=== PATIENT | male | born 1965 | race Caucasian/White ===

== ENCOUNTER → 2016-11-27 | Outpatient (CLI) | payer BC | END | disposition home or self-care (01) | LOC: LABWHC1 11:27 | PROVIDERS: ATTEND Urology | DX: R97.20 Elevated prostate specific antigen [PSA] (principal) | CPT/HCPCS: 36415; 84153 ==

== ENCOUNTER → 2016-12-20 | Outpatient (CLI) | payer BC ==
[2016-12-20 08:42] LABS: Basophils # (A) 0.1 k/uL (0-0.2); Basophils % (A) 1 %; CH 26.8; CHCM 32.5; Eosinophils # (A) 0.3 k/uL (0-0.7); Eosinophils % (A) 5 %; HCT 41.9 % (39.0-53.0); HDW 3.53; HGB 13.7 gm/dL (13.0-17.5); Hypochromasia Slight; Luc # (Auto) 0.25; Luc % (Auto) 4; Lymphocytes # (A) 1.7 k/uL (1.0-4.8); Lymphocytes % (A) 24 %; MCH 27.1 pg (25.0-35.0); MCHC 32.8 g/dL (31.0-37.0); MCV 82.5 fL (80.0-100.0); Mean Platelet Volume 7.6; Monocytes # (A) 0.6 k/uL (0-1.0); Monocytes % (A) 8 %; Neutrophils # (A) 4.1 k/uL (1.3-7.7); Neutrophils % (A) 59 %; Poikilocytosis Slight; RBC 5.07 m/uL (4.30-5.90); RDW 15.3 % (11.5-15.5); WBC (Perox) 6.86
[2016-12-20 09:06] LABS: ALT 35 U/L (21-72); AST 29 U/L (17-59); Alkaline Phosphatase 58 U/L (38-126); Anion Gap 11 mmol/L; Blood Urea Nitrogen 19 mg/dL (9-20); Calcium 9.6 mg/dL (8.4-10.2); Carbon Dioxide 30 mmol/L (22-30); Chloride 106 mmol/L (98-107); Cholesterol 168 mg/dL (<200); Glucose 122 mg/dL (74-99); HDL Cholesterol 34 mg/dL (40-60); Non-African American GFR(MDRD) >60 (>60 ml/min/1.73 sqM); Potassium 4.2 mmol/L (3.5-5.1); Sodium 147 mmol/L (137-145); Total Bilirubin 0.9 mg/dL (0.2-1.3); Total Protein 7.9 g/dL (6.3-8.2); Triglycerides 140 mg/dL (<150)
[2016-12-20 09:52] LABS: Hepatitis C Virus IgG Index 0.04
[2016-12-20 10:03] LABS: Hepatitis C Virus IgG Ab Negative (Negative)
== END | disposition home or self-care (01) ==
LOC: LABWHC1 07:29
PROVIDERS: ATTEND Family Medicine
DX: E78.5 Hyperlipidemia, unspecified (principal); E03.9 Hypothyroidism, unspecified; Z20.9 Contact with and (suspected) exposure to unspecified communicable disease
CPT/HCPCS: 36415; 80053; 80061; 84439; 84443; 84481; 85025; 86803

== ENCOUNTER → 2017-02-14 | Outpatient (CLI) | payer BC ==
[~2017-02-14] MED LIST: REGADENOSON 0.4 MG/5 ML SYRINGE IV ONE
--- NOTE | 2017-02-14 11:35 | ECHOF ---
Referral Reason:I10 htn R94.31 abn ekg MEASUREMENTS -------- HEIGHT: 182.9 cm WEIGHT: 156.5 kg BP: 130/85 RVIDd: 3.5 cm (< 3.3) IVSd: 1.5 cm (0.6 - 1.1) LVIDd: 5.5 cm (3.9 - 5.3) LVPWd: 1.5 cm (0.6 - 1.1) IVSs: 2.0 cm LVIDs: 3.6 cm LVPWs: 1.6 cm LA Diam: 5.0 cm (2.7 - 3.8) LAESV Index (A-L): 29.07 ml/m Ao Diam: 3.7 cm (2.0 - 3.7) AV Cusp: 2.1 cm (1.5 - 2.6) LA Diam: 5.1 cm (2.7 - 3.8) MV EXCURSION: 22.668 mm (> 18.000) MV EF SLOPE: 98 mm/s (70 - 150) EPSS: 0.5 cm MV E Ali: 0.57 m/s MV DecT: 264 ms MV A Lai: 0.66 m/s MV E/A Ratio: 0.87 RAP: 5.00 mmHg RVSP: 11.86 mmHg FINDINGS -------- Sinus rhythm. Morbid Obesity There is moderate concentric left ventricular hypertrophy. Overall left ventricular systolic function is low-normal with, an EF between 50 - 55 %. The right ventricle is normal in size. LA is midly dilated 29-33ml/m2. The right atrial size is normal. 1.5MG OF DEFINITY UTLIZED: 2 OR MORE WALL SEGMENTS NOT VISUALIZED. There is mild aortic valve sclerosis. There is no evidence of aortic regurgitation. Mild mitral annular calcification present. Mild mitral regurgitation is present. Mild tricuspid regurgitation present. There is no evidence of pulmonary hypertension. The right ventricular systolic pressure, as measured by Doppler, is 11.86mmHg. There is no pulmonic regurgitation present. The aortic root size is normal. There is no pericardial effusion. CONCLUSIONS -------- 1. There is moderate concentric left ventricular hypertrophy. 2. The right ventricular systolic pressure, as measured by Doppler, is 11.86mmHg. 3. There is no pulmonic regurgitation present. 4. There is no pericardial effusion. 5. Overall left ventricular systolic function is low-normal with, an EF between 50 - 55 %. 6. LA is midly dilated 29-33ml/m2. 7. 1.5MG OF DEFINITY UTLIZED: 2 OR MORE WALL SEGMENTS NOT VISUALIZED. 8. There is mild aortic valve sclerosis. 9. Mild mitral annular calcification present. 10. Mild mitral regurgitation is present. 11. Mild tricuspid regurgitation present. 12. There is no evidence of pulmonary hypertension. PULP MAKING PLANT OPERATOR: Nat Abrams RDCS
--- NOTE | 2017-02-14 14:26 | EST ---
DATE OF SERVICE: 02/14/2017 AGE: 51Y SEX: M HT: 6'2" WT: 345 lbs. Lexiscan Cardiolite Stress Test *Heart Rate Blood Pressure *Rest: 58 Rest: 143/82 * *Max. Achieved: 95 Maximum BP: 143/82 85% PMHR: 143 100% PMHR: 168 *METS: - INDICATIONS: Hypertension, abnormal EKG. MEDICATIONS: Lisinopril, Synthroid, prednisone, daily vitamin, Zyrtec, methotrexate. STRESS DATA: Pretesting physical examination showed heart rate of 58, pressure is 143/82 mmHg. Baseline EKG showed sinus rhythm. The patient was given 0.4 mg of Lexiscan over 15 seconds per protocol. Max heart was 95 beats per minute and maximum pressure was 143/82 mmHg. Clinically, the patient did not have any symptoms of chest pain or discomfort and the EKG did not show any significant ST or T-wave abnormalities consistent with ischemia. CONCLUSION: 1. Nondiagnostic electrocardiogram stress testing in response to Lexiscan. 2. Please follow up on the Cardiolite portion on a separate report from the Radiology Department.
--- NOTE | 2017-02-14 14:28 | NM ---
EXAMINATION TYPE: NM stress lexiscan cardiolite DATE OF EXAM: 02/14/2017 COMPARISON: NONE HISTORY: Hypertension, abnormal EKG, R 94.31, I10 TECHNIQUE: After the intravenous administration of 10.72 mCi Tc 99m Sestamibi - Cardiolite resting S PECT images acquired 45 minutes post injection. The patient received 0.4mg Lexiscan, 26.4 mCi Tc 99m Sestamibi - Stress images obtained [address] injection FINDINGS: Review of stress and rest SPECT images demonstrates decreased perfusion along the anterior wall of th e left ventricle on stress and rest images towards the base of the heart. Suggestion of some decrease d uptake along the anteroseptal left ventricular myocardium on stress as compared to rest images only on the vertical long axis and not confirmed on the additional imaging, this may be artifactual. Gat ed analysis shows normal wall motion with an estimated left ventricular ejection fraction of 59 %. IMPRESSION: Suspect artifact as described, findings equivocal. There may have been previous infarct along the ant erior wall of the left ventricle.
== END | disposition home or self-care (01) ==
LOC: RADNMMAIN 09:01
PROVIDERS: ATTEND Family Medicine
DX: R94.31 Abnormal electrocardiogram [ECG] [EKG] (principal); I10 Essential (primary) hypertension
CPT/HCPCS: 93017; 93306; 78452; A9500; Q9957; J2785

== ENCOUNTER 2017-03-27 06:34 | Day surgery (SDC) | payer BC ==
[2017-03-21 08:58] VITALS: BMI 43.0
[~2017-03-27 06:34] MED LIST changes: +ALPRAZolam 0.25 MG TAB PO PRN; +ALPRAZolam 0.5 MG TAB PO PRN; +ASPIRIN 325 MG TAB PO STA; +ATORVASTATIN 80 MG TAB PO STA; +NITROGLYCERIN SL TABS 0.4 MG TAB SUBLINGUAL PRN; -REGADENOSON 0.4 MG/5 ML SYRINGE IV ONE; +SODIUM CHLORIDE 0.9% 1,000 ML in EMPTY BAG 1 BAG IV ONE
[2017-03-27] MEDS ORDERED: HEPARIN SODIUM 1,000 UN/ML (10ML VL) ONE (07:06)
[2017-03-27] MEDS ORDERED: LIDOCAINE 2% INJ 20 MG/ML (20 ML MDV) ONE (07:07)
[2017-03-27] MEDS ORDERED: VERAPAMIL 2.5 MG/ML 2 ML AMP ONE (07:07)
[2017-03-27] MEDS ORDERED: SODIUM CHLORIDE 0.9% 1,000 ML IV ONE (07:09)
[2017-03-27 07:11] LABS: Glucose,Whole Blood 200 mg/dL (75-99)
[2017-03-27 07:12] VITALS: RESP 16
[2017-03-27] MEDS ORDERED: diphenhydrAMINE 50 MG/ML 1 ML VIAL ONE (07:25)
[2017-03-27] MEDS ORDERED: fentaNYL (PF) 50 MCG/ML 2 ML AMP ONE (07:25)
[2017-03-27] MEDS ORDERED: fentaNYL (PF) 50 MCG/ML 2 ML AMP IV ONE (07:41)
[2017-03-27] MEDS ORDERED: diphenhydrAMINE 50 MG/ML 1 ML VIAL IVP ONE (07:41)
[2017-03-27] MEDS ORDERED: LIDOCAINE 2% INJ 20 MG/ML SQ ONE (07:46)
[2017-03-27] MEDS ORDERED: VERAPAMIL SYRINGE (5 MG/10 ML) INTRAARTER ONE (07:49)
[2017-03-27] MEDS ORDERED: IOHEXOL 350 MG/ML 125ML BOTTLE INJ ONE (08:00)
[2017-03-27] MEDS ORDERED: RX INFO: IV CONTRAST WAS GIVEN 1 EACH MISC MISCELLANE PRN (08:13)
[2017-03-27] MEDS ORDERED: IBUPROFEN 800 MG TAB PO PRN (08:14)
[2017-03-27] MEDS ORDERED: SODIUM CHLORIDE 0.9% 1,000 ML IV SCH (08:15)
[2017-03-27] MEDS ORDERED: NON-FORMULARY DRUG (Cetirizine Hcl [Zyrtec] 10 MG) PO SCH (08:15)
[2017-03-27 08:29] LABS: Glucose,Whole Blood 179 mg/dL (75-99)
[2017-03-27 08:33] VITALS: TEMP 97.8
[2017-03-27] MEDS ORDERED: LEVOTHYROXINE 100 MCG TAB PO SCH (09:00)
[2017-03-27] MEDS ORDERED: LISINOPRIL-HCTZ 20-12.5 MG 1 EACH TAB PO SCH (09:00)
[2017-03-27] MEDS ORDERED: ERGOCALCIFEROL 50,000 UNIT CAP PO SCH (09:00)
[2017-03-27] MEDS ORDERED: NON-FORMULARY DRUG (Aspirin [Adult Low Dose Aspirin Ec] 81 MG) PO SCH (09:00)
[2017-03-27] MEDS ORDERED: FOLIC ACID 1 MG TAB PO SCH (09:00)
[2017-03-27] MEDS ORDERED: GLIMEPIRIDE 1 MG TAB PO SCH (09:00)
[2017-03-27 13:17] VITALS: BP 135/69; PULSE 69
--- NOTE | 2017-03-27 16:24 | CC ---
DATE OF PROCEDURE: 03/27/2017 Mr. Dumas is a 51-year-old male with a known history of hypertension, history of diabetes mellitus, who underwent knee surgery ( ) underwent myocardial perfusion imaging that revealed evidence of anterior wall defect. In view of that, recommendation was made regarding cardiac catheterization. The procedure, its risks, benefits and complications were discussed with the patient, who was in full understanding and agreement. PROCEDURE: The patient was brought to the cardiac catheterization technologist in a fasting, semi-sedated state after receiving fentanyl and Benadryl and achieving moderated conscious sedated state. Using Xylocaine anesthesia and surgical technique, a 6 Uzbek sheath was introduced into the right radial artery. Selective right and left coronary angiography was performed using 5 Uzbek, 3.5 [place], right and left [place] catheters. Multiple views were taken of the arteries, including hemiaxial views. Following that, a 5 Uzbek tight pigtail catheter was introduced into the left ventricle and a 30-degree GUO view of the left ventricle was obtained. Following that, catheter and sheath were removed. Hemostasis was obtained with deployment of a TR band. There were no immediate complications. The patient was returned to his room in stable condition. Of note , patient received 5000 units of intravenous heparin as well as intrarterial Verapamil. FINDINGS: LEFT MAIN: This is a short-sized vessel bifurcating into left circumflex, left anterior descending coronary artery. Left main coronary artery is without any obstructive coronary artery disease. LEFT ANTERIOR DESCENDING ARTERY: This is a large-sized vessel reaching toward the apex. It tapers down in the distal third, giving rise to a large diagonal branch proximally. The left anterior descending artery as well as its branches have no evidence of obstructive coronary artery disease. LEFT CIRCUMFLEX: This is a non-dominant vessel giving rise to 2 obtuse marginal branches. The left circumflex as well as its branches have no evidence of obstructive lung disease. RIGHT CORONARY ARTERY: This is a large dominant vessel bifurcating distally into PDA and PLV. The PDA reaches toward the inferoapical wall. The right coronary artery as well as its branches have no evidence of obstructive coronary artery disease. LEFT VENTRICULOGRAM: Left ventriculogram was performed in 30-degree GUO view and revealed normal left ventricular size and systolic fraction. Ejection fraction is 60%. HEMODYNAMICS: There was no gradient across the aortic valve. The left ventricular end-diastolic pressure was 12 mmHg. CONCLUSION: 1. Normal coronary arteries. 2. Normal left ventricular size and systolic function. RECOMMENDATIONS: Patient will continue therapy on the present medical regimen. Aggressive coronary risk factor modifications will be continued. Those findings and recommendations were discussed the patient and his family, who are in full understanding and agreement. The duration of the procedure was 17 minutes. MTDD
--- NOTE | 2017-03-27 16:29 | MISC ---
LETTER March 27, 2017 Re: Shon Dumas (63) Dear Dr. Fernandez, I had the pleasure of performing cardiac catheterization on Mr. Dumas at [facility] on March 27, and a full copy of the procedure note will be forwarded to you. In brief, he was found to have no evidence of significant or obstructive coronary artery disease, with a preserved systolic function. Based on those findings, I have recommended continued medical therapy with the aggressive coronary risk factor modifications you have initiated. Thank you again for allowing me to participate in this patient's care. Please feel free to call with any questions. Sincerely, Yariel Henriquez M.D. TESHA
[2017-03-29] MEDS ORDERED: METHOTREXATE SODIUM 2.5 MG TAB PO SCH (12:00)
== END 2017-03-27 13:20 | disposition home or self-care (01) ==
LOC: CATHCVL 06:34
PROVIDERS: ATTEND Internal Medicine Interventional Cardiology
DX: R94.39 Abnormal result of other cardiovascular function study (principal); I10 Essential (primary) hypertension; Z79.84 Long term (current) use of oral hypoglycemic drugs; E11.9 Type 2 diabetes mellitus without complications; Z79.899 Other long term (current) drug therapy; Z79.82 Long term (current) use of aspirin
CPT/HCPCS: 93458; 99152; 99153; C1894; C1769; J2001; J1200; J3010; J1644; Q9967

== ENCOUNTER → 2017-04-01 | Outpatient (CLI) | payer BC | END | disposition home or self-care (01) | LOC: LABWHC1 12:02 | PROVIDERS: ATTEND Urology | DX: R97.20 Elevated prostate specific antigen [PSA] (principal) | CPT/HCPCS: 36415; 84153 ==

== ENCOUNTER → 2017-06-05 | Outpatient (CLI) | payer BC | END | disposition home or self-care (01) | LOC: LABWHC1 07:10 | PROVIDERS: ATTEND Family Medicine | DX: E11.9 Type 2 diabetes mellitus without complications (principal) | CPT/HCPCS: 36415; 83036 ==

== ENCOUNTER → 2017-10-07 | Outpatient (CLI) | payer BC ==
[2017-10-07 10:33] LABS: ALT 60 U/L (21-72); AST 41 U/L (17-59); Albumin 4.2 g/dL (3.5-5.0); Alkaline Phosphatase 47 U/L (38-126); Anion Gap 10 mmol/L; Blood Urea Nitrogen 19 mg/dL (9-20); Calcium 9.6 mg/dL (8.4-10.2); Carbon Dioxide 30 mmol/L (22-30); Chloride 104 mmol/L (98-107); Cholesterol 160 mg/dL (<200); Glucose 110 mg/dL (74-99); HDL Cholesterol 36 mg/dL (40-60); LDL Cholesterol,Calculated 100 mg/dL (0-99); Potassium 4.3 mmol/L (3.5-5.1); Sodium 144 mmol/L (137-145); Total Bilirubin 0.8 mg/dL (0.2-1.3); Total Protein 7.2 g/dL (6.3-8.2); Triglycerides 119 mg/dL (<150)
[2017-10-07 11:12] LABS: Prostate Specific Antigen <0.10 ng/mL (0.00-4.00)
== END | disposition home or self-care (01) ==
LOC: LABWHC1 07:11
PROVIDERS: ATTEND Urology
DX: C61 Malignant neoplasm of prostate (principal); E11.9 Type 2 diabetes mellitus without complications
CPT/HCPCS: 36415; 80053; 80061; 84153

== ENCOUNTER → 2018-06-01 | Outpatient (CLI) | payer BC | END | disposition home or self-care (01) | LOC: LABWHC1 08:11 | PROVIDERS: ATTEND Urology | DX: R97.20 Elevated prostate specific antigen [PSA] (principal) | CPT/HCPCS: 36415; 84153 ==

== ENCOUNTER → 2019-01-28 | Outpatient (CLI) | payer BC | LOC: LABWHC1 14:25 | PROVIDERS: ATTEND Urology | DX: C61 Malignant neoplasm of prostate (principal) | CPT/HCPCS: 36415; 84153 ==

== ENCOUNTER → 2019-02-18 | Outpatient (CLI) | payer BC ==
--- NOTE | 2019-02-18 17:57 | PN ---
PROGRESS NOTE DATE OF SERVICE: 02/18/2019 This patient is a 53-year-old gentleman who has been followed in [facility] for treatment of obstructive sleep apnea-hypopnea syndrome. Patient successfully continues to use his BiPAP equipment every night for the whole night without any significant problems. No snoring with the machine. [place] Sleepiness Scale today is 6, which is within normal range. I checked patient's BiPAP unit. BiPAP pressure is 15/11 cm of water. The patient is using it every night for the whole night, 30/30 nights for more than 4 hours. Average usage is 7.9 hours. The machine does not have information about apnea-hypopnea index. The machine is more than 6 years old and sometimes noisy. MEDICATIONS: 1. Synthroid. 2. Hydrochlorothiazide. 3. Lisinopril. 4. Ibuprofen. PHYSICAL EXAMINATION: GENERAL: A pleasant patient in no distress. VITAL SIGNS: BP on the right arm 190/93, on the left, 184/88, HR 66. Height 6 feet 0 inches. Weight 376. Body mass index 50.9, temperature 98.0, oxygen saturation at room air 97%. HEENT: PERRLA, EOMI. Evaluation of oropharynx showed tongue protrudes midline. Low position of soft palate. Mallampati IV. NECK: Supple. No JVD. Thyroid is not palpable. LUNGS: Clear to percussion and to auscultation. Good air exchange. No wheezing or rhonchi. HEART: S1, S2 regular. No murmurs, gallops or rubs. ABDOMEN: Obese. EXTREMITIES: No clubbing or cyanosis. WALLPAPER SCRAPER: Awake, alert, and oriented X3. Cranial nerves 2 to 7 intact. There is no fasciculation or atrophy. noted. No focal deficits observed. IMPRESSION: 1. Severe obstructive sleep apnea-hypopnea syndrome with extremely high apnea-hypopnea index of 106. Patient demonstrated 100% compliance with treatment, benefitting from treatment. 2. BiPAP unit is more than 6 years old. Sometimes it is noisy. It does not have information about apnea-hypopnea index. 3. Hypertension. 4. History of prostate carcinoma, status post prostatectomy. 5. Status post bilateral knee replacement 2 years ago. 6. Status post tonsillectomy. 7. Status post hernia repair. PLAN: 1. Patient will continue to use BiPAP equipment every night for the whole night. 2. Prescription to replace BiPAP unit with automatic model. 3. Losing weight. 4. Sleep hygiene with regular time in bed for at least 8 hours. 5. No driving if feeling any sleepiness. 6. I will see the patient for follow-up visit to check his apnea-hypopnea index on treatment with the new BiPAP unit. Thank you very much for allowing me to participate in the management of your patient. Sincerely, Gilberto Rice MD, PhD, FAASM Diplomat of [place] [employer] [place] [employer] Special Warfare Combatant Crewman of [facility] [place] MMODL / IJN: [id number] /
== END | disposition home or self-care (01) ==
LOC: SLEEP 16:07
PROVIDERS: ATTEND Internal Medicine
DX: G47.33 Obstructive sleep apnea (adult) (pediatric) (principal); I10 Essential (primary) hypertension; Z79.1 Long term (current) use of non-steroidal anti-inflammatories (NSAID); Z99.89 Dependence on other enabling machines and devices; Z90.79 Acquired absence of other genital organ(s); Z85.46 Personal history of malignant neoplasm of prostate; Z96.653 Presence of artificial knee joint, bilateral; Z90.89 Acquired absence of other organs; Z98.890 Other specified postprocedural states; Z79.899 Other long term (current) drug therapy

== ENCOUNTER → 2019-06-09 | Outpatient (CLI) | payer BC ==
--- NOTE | 2019-06-09 20:51 | PN ---
PROGRESS NOTE DATE OF SERVICE: 06/09/2019 This patient is a 53-year-old gentleman who has been followed in [facility] for treatment of severe obstructive sleep apnea-hypopnea syndrome. Recently the patient received a new BiPAP unit. Today is his first visit after he started to use the new BiPAP machine. The patient is able to use BiPAP equipment every night for the whole night without significant problems related to mask fitting, pressure or humidification. [place] Sleepiness Scale today is 3, which is absolutely normal. I checked the patient's BiPAP unit. Range of the pressure: maximal inspiratory pressure 17, minimal expiratory pressure 8 with a pressure support of 4. Average pressure 14/10 cm of water. Usage is every night for more than 4 hours. Average usage is 7.6 hours. Leak is only 4 L/minute. Apnea-hypopnea index is 1.7, which is absolutely perfect. MEDICATIONS: 1. Lisinopril. 2. Hydrochlorothiazide. 3. Synthroid. 4. Ibuprofen. PHYSICAL EXAMINATION: GENERAL: A pleasant patient in no distress. No chest pain, no shortness of breath, no headache. VITAL SIGNS: BP 182/97, HR 65, RR 16. Weight is 374.2. Oxygen saturation at room air 96%. HEENT: PERRLA, EOMI. Evaluation of oropharynx showed tongue protrudes midline. Low position of soft palate. Mallampati IV. NECK: Supple. No JVD. Thyroid is not palpable. LUNGS: Clear to percussion and to auscultation. Good air exchange. No wheezing or rhonchi. HEART: S1, S2 regular. No murmurs, gallops or rubs. ABDOMEN: Obese. EXTREMITIES: No clubbing or cyanosis. CYBER ANALYST: Awake, alert, and oriented X3. Cranial nerves 2 to 7 intact. There is no fasciculation or atrophy. noted. No focal deficits observed. IMPRESSION: 1. Severe obstructive sleep apnea-hypopnea syndrome with apnea-hypopnea index 106. The patient demonstrated 100% compliance with treatment, benefitting from treatment; respiration fully normalized on treatment with BiPAP. 2. Hypertension. 3. History of prostate carcinoma, status post prostatectomy. 4. Status post bilateral knee replacement 2 years ago. 5. Status post tonsillectomy. 6. Status post hernia repair. PLAN: 1. Patient will continue to use BiPAP equipment every night for the whole night. 2. Losing weight. 3. Sleep hygiene with regular time in bed for 7-1/2 hours. 4. Monitoring of his blood pressure by himself and with his primary care physician his low-sodium diet. Thank you very much for allowing me to participate in the management of your patient. Sincerely, Gilberto Rice MD, PhD, FAASM Diplomat of [place] [employer] [place] [employer] Watch Hairspring Assembler of [facility] [place] MMODL / IJN: [id number] /
== END | disposition home or self-care (01) ==
LOC: SLEEP 16:31
PROVIDERS: ATTEND Internal Medicine
DX: G47.33 Obstructive sleep apnea (adult) (pediatric) (principal); I10 Essential (primary) hypertension; Z85.46 Personal history of malignant neoplasm of prostate; Z90.79 Acquired absence of other genital organ(s); Z96.653 Presence of artificial knee joint, bilateral; Z90.89 Acquired absence of other organs; Z98.890 Other specified postprocedural states; Z99.89 Dependence on other enabling machines and devices; Z79.1 Long term (current) use of non-steroidal anti-inflammatories (NSAID); Z79.899 Other long term (current) drug therapy

== ENCOUNTER → 2019-08-12 | Outpatient (CLI) | payer BC | END | disposition home or self-care (01) | LOC: LABWHC1 12:16 | PROVIDERS: ATTEND Urology | DX: C61 Malignant neoplasm of prostate (principal) | CPT/HCPCS: 36415; 84153 ==

== ENCOUNTER → 2019-10-13 | Day surgery (SDC) | payer BC ==
[2019-10-11 09:05] VITALS: BMI 44.7
[~2019-10-13] MED LIST changes: -ALPRAZolam 0.25 MG TAB PO PRN; -ALPRAZolam 0.5 MG TAB PO PRN; -ASPIRIN 325 MG TAB PO STA; -ATORVASTATIN 80 MG TAB PO STA; +LACTATED RINGERS 1,000 ML IV SCH; +LIDOCAINE 1% 20 ML VIAL (10MG/ML) FOR IV START INTRADERMA PRN; -NITROGLYCERIN SL TABS 0.4 MG TAB SUBLINGUAL PRN; +PROPOFOL 10 MG/ML 20 ML VIAL IV ONE; -SODIUM CHLORIDE 0.9% 1,000 ML in EMPTY BAG 1 BAG IV ONE
--- NOTE | 2019-10-13 08:39 | P.GSHP ---
History of Present Illness H&P Date: 10/13/19 CHIEF COMPLAINT: Colon screen HISTORY OF PRESENT ILLNESS: The patient is a 53-year-old male who presents for colon screen. Lower endoscopy was offered for further evaluation and management. PAST MEDICAL HISTORY: Please see list. PAST SURGICAL HISTORY: Please see list. MEDICATIONS: Please see list. ALLERGIES: Please see list. SOCIAL HISTORY: No illicit drug use FAMILY HISTORY: No reports of Crohn disease or ulcerative colitis. REVIEW OF ORGAN SYSTEMS: CONSTITUTIONAL: No reports of fevers or chills. PHYSICAL EXAM: VITAL SIGNS: Stable GENERAL: Well-developed pleasant in no acute distress. HEENT: No scleral icterus. Extraocular movements grossly intact. Moist buccal mucosa. NECK: Supple without lymphadenopathy. CHEST: Unlabored respirations. Equal bilateral excursions. CARDIOVASCULAR: Regular rate and rhythm. Distal 2+ pulses. ABDOMEN: Soft, nontender, nondistended. MUSCULOSKELETAL: No clubbing, cyanosis, or edema. ASSESSMENT: 1. Colon screen. PLAN: 1. Recommend proceeding with a lower endoscopy Past Medical History Past Medical History: Cancer, Diabetes Mellitus, Hypertension, Rheumatoid Arthritis (RA), Sleep Apnea/CPAP/BIPAP, Thyroid Disorder Additional Past Medical History / Comment(s): HX of Prostate CA; uses CPAP, hx of colon polyps, Lower back pain with sciatica eric. History of Any Multi-Drug Resistant Organisms: None Reported Past Surgical History: Appendectomy, Heart Catheterization, Hernia Repair, Joint Replacement Additional Past Surgical History / Comment(s): Eric. knee replacements; Eric. knee arthroscopies, Prostatectomy, Colonoscopy Past Anesthesia/Blood Transfusion Reactions: No Reported Reaction Past Psychological History: No Psychological Hx Reported Smoking Status: Never smoker Past Alcohol Use History: None Reported Past Drug Use History: None Reported - Past Family History Father Family Medical History: Cancer Additional Family Medical History / Comment(s): colon Mother Family Medical History: Cancer Additional Family Medical History / Comment(s): liver Brother(s) Family Medical History: Cancer Additional Family Medical History / Comment(s): colon Medications and Allergies Home Medications Medication Instructions Recorded Confirmed Type Levothyroxine Sodium [Levoxyl] 100 mcg PO DAILY 03/21/17 10/11/19 History Lisinopril-Hctz 20-12.5 mg 1 tab PO BID 03/21/17 10/11/19 History [Zestoretic 20-12.5] Ibuprofen 800 mg PO Q6HR PRN 03/24/17 10/11/19 History Acetaminophen [Tylenol] 325 mg PO DIRECTED PRN 10/11/19 10/11/19 History Atorvastatin [Lipitor] 20 mg PO DAILY 10/11/19 10/11/19 History Etanercept [Enbrel] 50 mg SQ WE 10/11/19 10/11/19 History Ozempic 0.5 mg INJ MO 10/11/19 History Allergies Allergy/AdvReac Type Severity Reaction Status Date / Time Penicillins Allergy Rash/Hives Verified 10/11/19 08:50 hydrocodone [From [place]] AdvReac headache;di Verified 10/11/19 08:50 zziness
[2019-10-13 09:12] VITALS: TEMP 98.9
[2019-10-13 09:16] LABS: Glucose,Whole Blood 128 mg/dL (75-99)
[2019-10-13 09:41] VITALS: RESP 16
--- NOTE | 2019-10-13 09:48 | P.PCN ---
Date of Procedure: 10/13/19 Description of Procedure: PREOPERATIVE DIAGNOSIS: Colonoscopy screening. Family history colon cancer, brother, father, grandmother Personal history of high-risk colon polyp POSTOPERATIVE DIAGNOSIS: Colonoscopy screening. Family history colon cancer, brother, father, grandmother Personal history of high-risk colon polyp OPERATION: Colonoscopy to the ascending colon SURGEON: Hyacinth Elmore MD. ANESTHESIA: MAC. INDICATIONS: The patient is a 53-year-old male who presents for colonoscopy screening. Benefits and risks were described and informed consent was obtained. DESCRIPTION OF PROCEDURE: The patient had undergone Suprep. He had been brought into the operating room and laid in the left lateral decubitus position. After adequate intravenous sedation, the rectum was examined with 2% lidocaine jelly. The prostatic fossa was unremarkable. No external hemorrhoids were encountered. The rectal tone was within normal limits. No lesions were palpated in the rectal vault. An Olympus colonoscope was advanced to the ascending colon. The sigmoid colon was highly tortuous including along the splenic flexure. The prep was excellent with clear visualization of the mucosal folds. No scattered diverticulosis was encountered. No colonic polyps were found of the transverse colon and descend ing colon. No evidence of focal colitis was found. Retroflexion of the scope demonstrated grade 1 internal hemorrhoids without active bleeding or inflammation. The colon was desufflated. The patient had tolerated the procedure well. Withdrawal time was over 6 minutes. FINDINGS: Aronchick preparation quality scale 1 (1-5) Internal hemorrhoids, grade 1 No external prolapsed hemorrhoids. No arteriovenous malformations. No adenomatous polyps. No focal colitis. No sigmoid diverticulosis Scope advanced to the ascending colon RECOMMENDATIONS: 1. Recommend completion barium enema for the cecum and ileocecal valve 2. He has high-risk history, repeat colonoscopy 3 years, 2022 Plan - Discharge Summary Discharge Rx Participant: No New Discharge Prescriptions: Continue Lisinopril-Hctz 20-12.5 mg [Zestoretic 20-12.5] 1 tab PO BID Levothyroxine Sodium [Levoxyl] 100 mcg PO DAILY Ibuprofen 800 mg PO Q6HR PRN PRN Reason: Pain Etanercept [Enbrel] 50 mg SQ WE Atorvastatin [Lipitor] 20 mg PO DAILY Acetaminophen [Tylenol] 325 mg PO DIRECTED PRN PRN Reason: Pain Ozempic 0.5 mg INJ MO metFORMIN HCL [Glucophage] 500 mg PO BID Discharge Medication List Levothyroxine Sodium [Levoxyl] 100 mcg PO DAILY 03/21/17 [History] Lisinopril-Hctz 20-12.5 mg [Zestoretic 20-12.5] 1 tab PO BID 03/21/17 [History] Ibuprofen 800 mg PO Q6HR PRN 03/24/17 [History] Acetaminophen [Tylenol] 325 mg PO DIRECTED PRN 10/11/19 [History] Atorvastatin [Lipitor] 20 mg PO DAILY 10/11/19 [History] Etanercept [Enbrel] 50 mg SQ WE 10/11/19 [History] Ozempic 0.5 mg INJ MO 10/11/19 [History] metFORMIN HCL [Glucophage] 500 mg PO BID 10/13/19 [History] Follow up Appointment(s)/Referral(s): Hyacinth Elmore MD [STAFF PHYSICIAN] - 10/19/19 Patient Instructions/Handouts: Colonoscopy (DC) Activity/Diet/Wound Care/Special Instructions: Recommend colonoscopy in 3 years, 2022 Discharge Disposition: HOME SELF-CARE
[2019-10-13 09:55] VITALS: BP 133/93; PULSE 64
--- NOTE | 2019-10-13 14:43 | XR ---
KUB HISTORY: Failed colonoscopy Frontal KUB submitted on 2 images Multiple surgical clips in the right lower quadrant may be due to post appendectomy change. Air-fille d loops of small and large bowel are present. There is no evident pneumoperitoneum. Lung bases are no t included on exam. Probable vascular calcifications within the pelvis. Marked degenerative disc garcia ge in the visualized spine. IMPRESSION: Post colonoscopy changes
== END | disposition home or self-care (01) ==
LOC: ORWHC2ENDO 08:21
PROVIDERS: ATTEND Surgery Plastic and Reconstructive Surgery
DX: Z12.11 Encounter for screening for malignant neoplasm of colon (principal); Z80.0 Family history of malignant neoplasm of digestive organs; Z53.8 Procedure and treatment not carried out for other reasons; Q43.8 Other specified congenital malformations of intestine; K64.0 First degree hemorrhoids; E11.9 Type 2 diabetes mellitus without complications; I10 Essential (primary) hypertension; M06.9 Rheumatoid arthritis, unspecified; G47.33 Obstructive sleep apnea (adult) (pediatric); Z99.89 Dependence on other enabling machines and devices; Z86.010 Personal history of colon polyps; M54.32 Sciatica, left side; M54.31 Sciatica, right side; Z96.653 Presence of artificial knee joint, bilateral; Z90.79 Acquired absence of other genital organ(s); Z85.46 Personal history of malignant neoplasm of prostate; Z79.84 Long term (current) use of oral hypoglycemic drugs; Z79.890 Hormone replacement therapy; Z79.899 Other long term (current) drug therapy; Z79.1 Long term (current) use of non-steroidal anti-inflammatories (NSAID); Z88.5 Allergy status to narcotic agent; Z88.0 Allergy status to penicillin; E07.9 Disorder of thyroid, unspecified
CPT/HCPCS: 74018

== ENCOUNTER → 2019-10-14 | Outpatient (CLI) | payer BC ==
--- NOTE | 2019-10-14 11:54 | FL ---
EXAMINATION TYPE: FL barium enema w air contrast DATE OF EXAM: 10/14/2019 COMPARISON: KUB 10/13/2019 HISTORY: Cecal volvulus, incomplete colonoscopy TECHNIQUE: A double contrast barium enema study is performed. FINDINGS: Slider Assembler view of the abdomen shows overall non-obstructive bowel gas pattern. Exam is somewhat limited by patient body habitus and inability to cooperate with the exam. Multiple d iminutive filling defects are scattered within the sigmoid colon, possibly related to incomplete raquel l preparation. Patient is post appendectomy. Colon is well coated however incompletely drained due to redundancy in the sigmoid colon. No evidence of any mass or polyp, obstructing or constricting lesion throughout the colon. No signif icant diverticular disease is noted. 7 minutes 49 seconds fluoroscopy time, 38 images obtained. IMPRESSION: Patient had limited ability to cooperate with exam. No obvious annular lesion, no obstruc tion to flow. Limitations as described. Difficult to exclude polyps.
== END | disposition home or self-care (01) ==
LOC: RADFLMAIN 08:50
PROVIDERS: ATTEND Surgery Plastic and Reconstructive Surgery
DX: K56.2 Volvulus (principal)
CPT/HCPCS: 74280

== ENCOUNTER → 2020-04-26 | Outpatient (CLI) | payer BC ==
[2020-04-26 18:05] LABS: African American GFR (CKD) 116.6 (60.0-200.0); Albumin 4.3 g/dL (3.80-4.90); Albumin/Globulin Ratio 1.72 (1.60-3.17); Anion Gap 9.1 mmol/L (4.00-12.00); BUN/Creat Ratio 18.75 Ratio (12.00-20.00); Calcium 9.3 mg/dL (8.7-10.3); Carbon Dioxide 25.9 mmol/L (21.6-31.8); Globulin 2.5 g/dL (1.6-3.3); Non-African American GFR(CKD) 100.6 (60.0-200.0); Potassium 3.9 mmol/L (3.5-5.5); Total Bilirubin 1.2 mg/dL (0.2-1.2); Total Protein 6.8 g/dL (6.2-8.2)
[2020-04-26 18:06] LABS: Chol/HDL Ratio 3.58; LDL Cholesterol,Calculated 58.8 mg/dL (0.0-131.0); VLDL Calculation 26.2 mg/dL (5.00-40.00)
[2020-04-26 18:55] LABS: Hemoglobin A1C 5.6 % (4.0-6.0)
[2020-04-26 20:21] LABS: Urine Creatinine 179.6 mg/dL
== END | disposition home or self-care (01) ==
LOC: LABWHC1 08:16
PROVIDERS: ATTEND Internal Medicine
DX: E11.65 Type 2 diabetes mellitus with hyperglycemia (principal); E78.5 Hyperlipidemia, unspecified
CPT/HCPCS: 36415; 80053; 80061; 82043; 82570; 83036

== ENCOUNTER → 2020-06-02 | Outpatient (CLI) | payer BC | END | disposition home or self-care (01) | LOC: LABWHC1 11:46 | PROVIDERS: ATTEND Urology | DX: C61 Malignant neoplasm of prostate (principal) | CPT/HCPCS: 36415; 84153 ==

== ENCOUNTER → 2020-06-08 | Outpatient (CLI) | payer BC ==
--- NOTE | 2020-06-09 05:43 | SFUN ---
SLEEP CENTER FOLLOW UP NOTE DATE OF SERVICE: 06/08/2020 HISTORY: This is a 54-year-old gentleman who has been followed in Sleep Center for treatment of obstructive sleep apnea-hypopnea syndrome. Patient continues to use his BiPAP equipment every night for the whole night. According to the patient, he does not snore with the machine. [place] Sleepiness Scale is 4. I checked his BiPAP unit. Maximal IPAP pressure of 17 cm of water, minimal EPAP pressure 8 cm of water with a pressure support of 4 cm, average pressure 13.2/9.2, usage 30/30 nights more than 4 hours, average usage 7.7 hours per night. Leak is 5 L/minute which is acceptable. Apnea-hypopnea index down to 0.5, which is perfect. MEDICATIONS: Lisinopril hydrochlorothiazide 20 mg/12.5 mg 2 tablets daily, levothyroxine 100 mcg once daily, ibuprofen 800 mg as needed, Zyrtec 10 mg daily as needed, metformin 500 mg twice a day, Atorvastatin 20 mg once a day, Enbrel 50 mg/mL weekly, Ozempic 2.5 mg weekly. PHYSICAL EXAMINATION: GENERAL: A pleasant patient without any distress. VITAL SIGNS: BP 158/89, HR 66, RR 16, height 6' 0", weight 345.2, BMI 46.7. Temperature 98.1, oxygen saturation at room air 98%. HEENT: PERRLA, EOMI, evaluation of oropharynx showed extremely low position of soft palate, Mallampati 4. NECK: Supple, no JVD. Thyroid is not palpable. LUNGS: Clear to percussion and to auscultation. Good air exchange. No wheezing or rhonchi. HEART: S1, S2 regular. No murmurs, gallops, or rubs. ABDOMEN: Obese, soft and nontender. Bowel sounds are present. No organomegaly appreciated. EXTREMITIES: No clubbing or cyanosis. RIGGING MAN: Awake, alert, and oriented X3. Cranial nerves 2 to 7 intact. There is no fasciculation or atrophy. noted. No focal deficits observed. IMPRESSION: 1. Extremely severe obstructive sleep apnea-hypopnea syndrome; apnea-hypopnea index 106, on full control with BiPAP. The patient demonstrates 100% compliance with treatment. 2. Hypertension. 3. History of prostate carcinoma, status post prostatectomy. 4. Status post bilateral knee replacement. 5. Status post tonsillectomy. 6. Status post hernia repair. PLAN: 1. Patient will continue to use PAP equipment every night for the whole night. 2. Sleep hygiene with regular time in bed for at least 7-1/2 to 8 hours. 3. Precautions related to driving. No driving if feeling sleepiness. 4. I will maintain all necessary prescription for PAP supplies including mask, tube, filters. 5. Watching weight. 6. No driving if feeling sleepiness. 7. Follow-up visit in 6 months or earlier if patient has any problems. Thank you very much for allowing me to participate in the management of your patient. Sincerely, Gilberto Rice MD, PhD, FAASM Diplomat of [place] [employer] [employer] [facility] [place] MMODL / MAGANN: [id number] /
== END | disposition home or self-care (01) ==
LOC: SLEEP 13:05
PROVIDERS: ATTEND Internal Medicine
DX: G47.33 Obstructive sleep apnea (adult) (pediatric) (principal); I10 Essential (primary) hypertension; Z99.89 Dependence on other enabling machines and devices; Z96.653 Presence of artificial knee joint, bilateral; Z85.46 Personal history of malignant neoplasm of prostate; Z90.79 Acquired absence of other genital organ(s)

== ENCOUNTER → 2020-06-14 | Outpatient (CLI) | payer BC ==
[2020-06-14 08:39] LABS: Basophils # (A) 0.1 k/uL (0-0.2); Basophils % (A) 1 %; Eosinophils # (A) 0.4 k/uL (0-0.7); Eosinophils % (A) 5 %; HCT 47.2 % (39.0-53.0); HGB 16.2 gm/dL (13.0-17.5); Lymphocytes # (A) 1.8 k/uL (1.0-4.8); Lymphocytes % (A) 23 %; MCH 31.6 pg (25.0-35.0); MCHC 34.3 g/dL (31.0-37.0); MCV 92.1 fL (80.0-100.0); Mean Platelet Volume 8.9; Monocytes # (A) 0.5 k/uL (0-1.0); Monocytes % (A) 6 %; Neutrophils % (A) 63 %; Platelet Count 181 k/uL (150-450); RBC 5.12 m/uL (4.30-5.90); RDW 13.1 % (11.5-15.5); WBC 7.9 k/uL (3.8-10.6)
[2020-06-14 18:44] LABS: African American GFR (CKD) 116.6 (60.0-200.0); Albumin 4.2 g/dL (3.80-4.90); Albumin/Globulin Ratio 1.68 (1.60-3.17); BUN/Creat Ratio 26.25 Ratio (12.00-20.00); Calcium 9.2 mg/dL (8.7-10.3); Chol/HDL Ratio 4.27; Globulin 2.5 g/dL (1.6-3.3); LDL Cholesterol,Calculated 61.4 mg/dL (0.0-131.0); Non-African American GFR(CKD) 100.6 (60.0-200.0); Total Bilirubin 1.2 mg/dL (0.2-1.2); Total Protein 6.7 g/dL (6.2-8.2); VLDL Calculation 36.6 mg/dL (5.00-40.00)
[2020-06-14 18:52] LABS: Hemoglobin A1C 5.7 % (4.0-6.0); T4, Free (Free Thyroxine) 1.1 ng/dL (0.80-1.80)
== END | disposition home or self-care (01) ==
LOC: LABWHC1 07:26
PROVIDERS: ATTEND Family Medicine
DX: E03.9 Hypothyroidism, unspecified (principal); E11.9 Type 2 diabetes mellitus without complications
CPT/HCPCS: 36415; 80053; 80061; 83036; 84439; 84443; 84481; 85025

== ENCOUNTER 2020-09-11 18:17 | Inpatient (IN) | payer BC ==
--- NOTE | 2020-09-11 19:38 | ED ---
General Adult HPI - General Chief complaint: Arrhythmia/Palpitations Stated complaint: SOB Time Seen by Provider: 09/11/20 18:43 Source: patient, EMS, RN notes reviewed Mode of arrival: EMS Limitations: no limitations - History of Present Illness Initial comments: Patient is a pleasant 54-year-old male presenting to the emergency Department with palpitations. Onset of symptoms was prior to arrival. Patient started with racing irregular heartbeat. Patient did feel short of breath and felt sweaty. Symptoms have improved however not completely resolved at this time. Patient did have similar symptoms several days ago after exercising however they resolved after resting. Prior to this no symptoms. Patient states he is not having chest pain. - Related Data Home Medications Medication Instructions Recorded Confirmed Levothyroxine Sodium [Levoxyl] 100 mcg PO DAILY 03/21/17 10/11/19 Lisinopril-Hctz 20-12.5 mg 1 tab PO BID 03/21/17 10/11/19 [Zestoretic 20-12.5] Ibuprofen 800 mg PO Q6HR PRN 03/24/17 10/11/19 Acetaminophen [Tylenol] 325 mg PO DIRECTED PRN 10/11/19 10/11/19 Atorvastatin [Lipitor] 20 mg PO DAILY 10/11/19 10/11/19 Etanercept [Enbrel] 50 mg SQ WE 10/11/19 10/11/19 Ozempic 0.5 mg INJ MO 10/11/19 metFORMIN HCL [Glucophage] 500 mg PO BID 10/13/19 10/13/19 Allergies Allergy/AdvReac Type Severity Reaction Status Date / Time Penicillins Allergy Rash/Hives Verified 09/11/20 18:38 hydrocodone [From [place]] AdvReac headache;di Verified 09/11/20 18:38 zziness Review of Systems ROS Statement: Those systems with pertinent positive or pertinent negative responses have been documented in the HPI. ROS Other: All systems not noted in ROS Statement are negative. Constitutional: Denies: fever Eyes: Denies: eye pain ENT: Denies: ear pain Respiratory: Denies: cough Cardiovascular: Reports: palpitations. Denies: chest pain Endocrine: Reports: fatigue Gastrointestinal: Denies: abdominal pain, vomiting Genitourinary: Denies: dysuria Musculoskeletal: Denies: back pain Skin: Denies: rash Neurological: Denies: weakness Past Medical History Past Medical History: Cancer, Diabetes Mellitus, Hypertension, Rheumatoid Arthritis (RA), Sleep Apnea/CPAP/BIPAP, Thyroid Disorder Additional Past Medical History / Comment(s): HX of Prostate CA; uses CPAP, hx of colon polyps, Lower back pain with sciatica eric. History of Any Multi-Drug Resistant Organisms: None Reported Past Surgical History: Appendectomy, Heart Catheterization, Hernia Repair, Joint Replacement Additional Past Surgical History / Comment(s): Eric. knee replacements; Eric. knee arthroscopies, Prostatectomy, Colonoscopy Past Anesthesia/Blood Transfusion Reactions: No Reported Reaction Past Psychological History: No Psychological Hx Reported Smoking Status: Never smoker Past Alcohol Use History: Occasional Past Drug Use History: None Reported - Past Family History Father Family Medical History: Cancer Additional Family Medical History / Comment(s): colon Mother Family Medical History: Cancer Additional Family Medical History / Comment(s): liver Brother(s) Family Medical History: Cancer Additional Family Medical History / Comment(s): colon General Exam Limitations: no limitations General appearance: alert, in no apparent distress Head exam: Present: normocephalic Eye exam: Present: normal appearance Neck exam: Present: normal inspection Respiratory exam: Present: normal lung sounds bilaterally Cardiovascular Exam: Present: irregular rhythm Expanded Peripheral pulses: 2+: Radial (R), Radial (L), Posterior Tibialis (R), Posterior Tibialis (L) GI/Abdominal exam: Present: soft. Absent: tenderness Extremities exam: Present: normal inspection Neurological exam: Present: alert Psychiatric exam: Present: normal affect, normal mood Skin exam: Present: normal color Course Vital Signs 09/11/20 09/11/20 09/11/20 18:50 19:56 20:27 Temperature 99.4 F Pulse Rate 87 95 91 Respiratory 18 18 18 Rate Blood Pressure 121/85 118/82 123/87 O2 Sat by Pulse 97 97 97 Oximetry EKG Findings - EKG Comments: EKG Findings:: Atrial flutter with a rate of 87. QRS 98. QT 386. QTc 464. Left axis. Incomplete right bundle-branch block. Inferior Q waves. No acute ST change. Medical Decision Making - Medical Decision Making Patient reevaluated and updated. Case discussed with Chon, covering for Dr. Fernandez, who will admit. Cardiology will be placed on consult. IV heparin will be started as well. - Lab Data Result diagrams: 09/11/20 19:40 09/11/20 19:40 Lab Results 09/11/20 09/11/20 09/11/20 Range/Units 19:40 19:40 19:40 WBC 10.9 H (3.8-10.6) k/uL RBC 5.25 (4.30-5.90) m/uL Hgb 16.6 (13.0-17.5) gm/dL Hct 47.0 (39.0-53.0) % MCV 89.7 (80.0-100.0) fL MCH 31.5 (25.0-35.0) pg MCHC 35.2 (31.0-37.0) g/dL RDW 13.4 (11.5-15.5) % Plt Count 184 (150-450) k/uL MPV 9.8 Neutrophils % 81 % Lymphocytes % 11 % Monocytes % 5 % Eosinophils % 2 % Basophils % 0 % Neutrophils # 8.8 H (1.3-7.7) k/uL Lymphocytes # 1.2 (1.0-4.8) k/uL Monocytes # 0.6 (0-1.0) k/uL Eosinophils # 0.2 (0-0.7) k/uL Basophils # 0.1 (0-0.2) k/uL Hyperchromasia Slight PT 11.6 (9.0-12.0) sec INR 1.1 (<1.2) APTT 24.5 (22.0-30.0) sec Sodium 138 (137-145) mmol/L Potassium 3.6 (3.5-5.1) mmol/L Chloride 107 (98-107) mmol/L Carbon Dioxide 22 (22-30) mmol/L Anion Gap 9 mmol/L BUN 17 (9-20) mg/dL Creatinine 0.69 (0.66-1.25) mg/dL Est GFR (CKD-EPI)AfAm >90 (>60 ml/min/1.73 sqM) Est GFR (CKD-EPI)NonAf >90 (>60 ml/min/1.73 sqM) Glucose 173 H (74-99) mg/dL Calcium 9.0 (8.4-10.2) mg/dL Magnesium 1.5 L (1.6-2.3) mg/dL Total Bilirubin 1.3 (0.2-1.3) mg/dL AST 49 (17-59) U/L ALT 48 (4-49) U/L Alkaline Phosphatase 51 (38-126) U/L Troponin I (0.000-0.034) ng/mL Total Protein 7.2 (6.3-8.2) g/dL Albumin 4.2 (3.5-5.0) g/dL Free T3 pg/mL 4.1 (2.8-5.3) pg/ml 09/11/20 Range/Units 19:40 WBC (3.8-10.6) k/uL RBC (4.30-5.90) m/uL Hgb (13.0-17.5) gm/dL Hct (39.0-53.0) % MCV (80.0-100.0) fL MCH (25.0-35.0) pg MCHC (31.0-37.0) g/dL RDW (11.5-15.5) % Plt Count (150-450) k/uL MPV Neutrophils % % Lymphocytes % % Monocytes % % Eosinophils % % Basophils % % Neutrophils # (1.3-7.7) k/uL Lymphocytes # (1.0-4.8) k/uL Monocytes # (0-1.0) k/uL Eosinophils # (0-0.7) k/uL Basophils # (0-0.2) k/uL Hyperchromasia PT (9.0-12.0) sec INR (<1.2) APTT (22.0-30.0) sec Sodium (137-145) mmol/L Potassium (3.5-5.1) mmol/L Chloride (98-107) mmol/L Carbon Dioxide (22-30) mmol/L Anion Gap mmol/L BUN (9-20) mg/dL Creatinine (0.66-1.25) mg/dL Est GFR (CKD-EPI)AfAm (>60 ml/min/1.73 sqM) Est GFR (CKD-EPI)NonAf (>60 ml/min/1.73 sqM) Glucose (74-99) mg/dL Calcium (8.4-10.2) mg/dL Magnesium (1.6-2.3) mg/dL Total Bilirubin (0.2-1.3) mg/dL AST (17-59) U/L ALT (4-49) U/L Alkaline Phosphatase (38-126) U/L Troponin I 0.020 (0.000-0.034) ng/mL Total Protein (6.3-8.2) g/dL Albumin (3.5-5.0) g/dL Free T3 pg/mL (2.8-5.3) pg/ml - Radiology Data Radiology results: image reviewed (Chest x-ray shows no acute process) Critical Care Time Critical Care Time: Yes Total Critical Care Time: 32 Disposition Clinical Impression: New onset atrial flutter Disposition: ADMITTED IP TO THIS HOSP Is patient prescribed a controlled substance at d/c from ED?: No Referrals: Brandon Fernandez MD [Primary Care Provider] - 1-2 days Decision Time: 21:08
[2020-09-11 19:44] LABS: Basophils # (A) 0.1 k/uL (0-0.2); Basophils % (A) 0 %; Eosinophils # (A) 0.2 k/uL (0-0.7); Eosinophils % (A) 2 %; HGB 16.6 gm/dL (13.0-17.5); Hyperchromasia Slight; Lymphocytes # (A) 1.2 k/uL (1.0-4.8); Lymphocytes % (A) 11 %; MCH 31.5 pg (25.0-35.0); MCHC 35.2 g/dL (31.0-37.0); MCV 89.7 fL (80.0-100.0); Mean Platelet Volume 9.8; Monocytes # (A) 0.6 k/uL (0-1.0); Monocytes % (A) 5 %; Neutrophils # (A) 8.8 k/uL (1.3-7.7); Neutrophils % (A) 81 %; Platelet Count 184 k/uL (150-450); RBC 5.25 m/uL (4.30-5.90); RDW 13.4 % (11.5-15.5); WBC 10.9 k/uL (3.8-10.6)
[2020-09-11 19:53] LABS: ALT 48 U/L (4-49); AST 49 U/L (17-59); African American GFR (CKD) >90 (>60 ml/min/1.73 sqM); Albumin 4.2 g/dL (3.5-5.0); Alkaline Phosphatase 51 U/L (38-126); Anion Gap 9 mmol/L; Blood Urea Nitrogen 17 mg/dL (9-20); Carbon Dioxide 22 mmol/L (22-30); Chloride 107 mmol/L (98-107); Glucose 173 mg/dL (74-99); Magnesium 1.5 mg/dL (1.6-2.3); Non-African American GFR(CKD) >90 (>60 ml/min/1.73 sqM); Potassium 3.6 mmol/L (3.5-5.1); Sodium 138 mmol/L (137-145); Total Bilirubin 1.3 mg/dL (0.2-1.3); Total Protein 7.2 g/dL (6.3-8.2)
[2020-09-11 19:55] LABS: INR 1.1 (<1.2)
[2020-09-11 19:56] LABS: Partial Thromboplastin Time 24.5 sec (22.0-30.0); Prothrombin Time 11.6 sec (9.0-12.0)
--- NOTE | 2020-09-11 19:57 | XR ---
EXAMINATION TYPE: XR chest 2V DATE OF EXAM: 09/11/2020 COMPARISON: NONE HISTORY: Short of breath TECHNIQUE: 2 views FINDINGS: There is no heart failure nor confluent pneumonic infiltrate. Heart and mediastinum appear normal. There are no hilar masses. There is no pleural effusion. Bony thorax is intact. There are zac st leads. IMPRESSION: No active cardiopulmonary disease.
[2020-09-11] MEDS ORDERED: DILTIAZEM 125 MG in SODIUM CHLORIDE 0.9% 100 ML IV SCH (20:00)
[2020-09-11] MEDS ORDERED: MAGNESIUM SULFATE-D5W PMX 1 GM in DEXTROSE/WATER 1 100ML.BAG IVPB ONE (20:02)
[2020-09-11] MEDS ORDERED: NALOXONE 0.4 MG/ML 1 ML VIAL IV PRN (21:09)
[2020-09-11] MEDS ORDERED: HEPARIN SODIUM,PORCINE 5,000 UNIT/ML 1 ML VIAL IV PRN (21:09)
[2020-09-11] MEDS ORDERED: HEPARIN SODIUM,PORCINE 5,000 UNIT/ML 1 ML VIAL IV ONE (21:09)
[2020-09-11] MEDS ORDERED: HEPARIN SOD,PORK IN 0.45% NACL 25,000 UNIT in 0.45% NACL 1 250ML.BAG IV SCH (21:15)
[2020-09-11 21:17] LABS: T4, Free (Free Thyroxine) 1.27 ng/dL (0.78-2.19)
[2020-09-12 05:05] LABS: Basophils # (A) 0.1 k/uL (0-0.2); Basophils % (A) 1 %; Eosinophils # (A) 0.4 k/uL (0-0.7); Eosinophils % (A) 4 %; HCT 44.7 % (39.0-53.0); HGB 15.5 gm/dL (13.0-17.5); Lymphocytes # (A) 2.5 k/uL (1.0-4.8); Lymphocytes % (A) 28 %; MCH 31.4 pg (25.0-35.0); MCHC 34.7 g/dL (31.0-37.0); MCV 90.5 fL (80.0-100.0); Mean Platelet Volume 8.2; Monocytes # (A) 0.7 k/uL (0-1.0); Monocytes % (A) 7 %; Neutrophils # (A) 5.4 k/uL (1.3-7.7); Neutrophils % (A) 58 %; Platelet Count 178 k/uL (150-450); RBC 4.95 m/uL (4.30-5.90); RDW 13.2 % (11.5-15.5); WBC 9.3 k/uL (3.8-10.6)
[2020-09-12 06:03] LABS: Glucose,Whole Blood 165 mg/dL (75-99)
[2020-09-12] MEDS ORDERED: ASPIRIN 325 MG TAB PO STA (07:50)
[2020-09-12] MEDS ORDERED: ALPRAZolam 0.25 MG TAB PO PRN (07:50)
[2020-09-12] MEDS ORDERED: NITROGLYCERIN SL TABS 0.4 MG TAB SUBLINGUAL PRN (07:50)
[2020-09-12] MEDS ORDERED: ALPRAZolam 0.5 MG TAB PO PRN (07:50)
[2020-09-12] MEDS ORDERED: ATORVASTATIN 80 MG TAB PO STA (07:50)
[2020-09-12] MEDS ORDERED: SODIUM CHLORIDE 0.9% 1,000 ML in EMPTY BAG 1 BAG IV ONE (07:50)
[2020-09-12] MEDS ORDERED: VERAPAMIL 2.5 MG/ML 2 ML AMP ONE (08:01)
[2020-09-12] MEDS ORDERED: LIDOCAINE 1% INJ 10MG/ML (20 ML MDV) ONE (08:01)
[2020-09-12] MEDS: LEVOTHYROXINE 100 MCG TAB PO SCH (08:07)
[2020-09-12] MEDS: METOPROLOL TARTRATE 25 MG TAB PO SCH ×2 (08:07→19:55)
[2020-09-12] MEDS ORDERED: IV FLUID CONTINUATION 500 ML IV ONE (08:35)
[2020-09-12] MEDS ORDERED: fentaNYL (PF) 50 MCG/ML 2 ML AMP ONE (08:51)
[2020-09-12] MEDS ORDERED: HEPARIN SODIUM 1,000 UN/ML (10ML VL) ONE (08:51)
[2020-09-12] MEDS ORDERED: ASPIRIN 81 MG PO SCH (09:00)
[2020-09-12] MEDS ORDERED: metFORMIN 500 MG TAB PO SCH (09:00)
[2020-09-12] MEDS ORDERED: MIDAZOLAM 2 MG/2 ML VIAL IV ONE (09:10)
[2020-09-12] MEDS ORDERED: LIDOCAINE 1% INJ 10MG/ML (20 ML MDV) SQ ONE (09:12)
--- NOTE | 2020-09-12 09:12 | CONS ---
CONSULTATION Mr. Dumas is a 54-year-old male with known history of diabetes, hypertension, and hyperlipidemia who presented with symptoms of dyspnea, not feeling well and rapid heartbeat. He has a history of obstructive sleep apnea. He has underwent a cardiac catheterization in March of 2017 because of an abnormal myocardial perfusion imaging and at that time there was no evidence of obstructive coronary artery disease. Friday while walking on the treadmill, he felt dyspneic. His heart rate was fast so he slowed down. On Friday, he went on the treadmill again, but starting at a slower rate and less duration, had no symptoms. Yesterday when he went to work while walking, he felt to be get dyspneic, dizzy, having palpitation and somewhat diaphoretic. He also had mild nausea. He called the EMS and when he came in he was noted to be in atrial fibrillation. The patient has no prior history of atrial fibrillation. He has no history of arrhythmia. No PND. No orthopnea. He has mild chronic peripheral edema. He has no dizziness or palpitation in the past. His coronary risk factors are remarkable for hypertension, hyperlipidemia, and diabetes. He is a nonsmoker. REVIEW OF SYSTEMS: RESPIRATORY SYSTEM: He has no recent cough or wheezing. No history of obstructive lung disease, GI SYSTEM: No recent GI bleeding. No peptic ulcer disease. He was nauseated yesterday. SYSTEM: No dysuria or hematuria. NERVOUS SYSTEM: No stroke or seizure. PHYSICAL EXAMINATION: He is a 54-year-old male, alert, oriented, in no apparent distress. Blood pressure 112/70 with the heart rate in the 60s. Patient is on IV Cardizem. HEAD: Normocephalic. EYES: Sclerae anicteric. NECK: Good carotid upstroke. No bruit. No jugular venous distention. LUNGS: Clear to auscultation. HEART: Irregular, irregular. S1, S2. No S3 with a systolic murmur at the base. No diastolic murmur. No rub. ABDOMEN: Soft, obese, nontender. Positive bowel sounds. No organomegaly. EXTREMITIES: Trace to 1+ edema. LAB DATA: Lab data revealed a hemoglobin of 15.5, platelet count 178. Troponin 0.020, 0.038 and 0.036. TSH of 5.0, free T4 and free T3 normal. BUN and creatinine 17 and 0.69. Potassium 3.6. EKG revealed atrial flutter with variable conduction with a left axis deviation and an intraventricular conduction delay. Chest x-ray shows no acute infiltrate. IMPRESSION: 1. New onset atrial flutter of unknown duration. Patient has not been feeling well for a week, but on Friday had the first clear symptoms. 2. Mild troponin elevation, could be related to the atrial flutter, but cannot exclude an ischemic event. 3. History of hypertension. 4. Hyperlipidemia. 5. Diabetes mellitus. RECOMMENDATION: I will stop his Cardizem, switch him to oral beta larry. I will obtain echocardiogram with Doppler. I have recommended to repeat cardiac catheterization. If there is no evidence of obstructive coronary artery disease, then the patient will be started on anticoagulation and evaluate for restoring sinus mechanism by cardioversion. Those findings and recommendation were discussed with the patient and he is full understanding and agreement. Thank you for this consult. We will follow with you. MMBOOML / IJN: [id number] /
[2020-09-12] MEDS ORDERED: VERAPAMIL SYRINGE (5 MG/10 ML) INTRAARTER ONE (09:13)
[2020-09-12] MEDS ORDERED: IOPAMIDOL-370 125ML BTL INJ ONE (09:34)
[2020-09-12] MEDS ORDERED: RX INFO: IV CONTRAST WAS GIVEN 1 EACH MISC MISCELLANE PRN (09:40)
[2020-09-12] MEDS ORDERED: SODIUM CHLORIDE 0.9% 1,000 ML IV SCH (09:45)
--- NOTE | 2020-09-12 10:12 | CC ---
CARDIAC CATHETERIZATION REPORT Mr. Dumas is a 54-year-old male with known history of diabetes, hypertension, hyperlipidemia, who presented with symptoms of dyspnea and dizziness and palpitation was noted to be in atrial flutter and had mild troponin elevation. In view of that, recommendation was made regarding cardiac catheterization. The procedure as well as the risks and the complications were discussed with the patient who is in full understanding and agreement. PROCEDURE: Patient was brought to photographic laboratory technician in a fasting, semi-sedated state after receiving Versed and Benadryl. Using Xylocaine anesthesia in the Seldinger technique, a 6-Italian sheath was introduced in the right radial artery. Selective right and left coronary angiography was performed using 5-Italian 3.5 bend right and left [place] catheter. Multiple views of the coronary artery including hemiaxial views were obtained. Following that, a 5-Italian tight pigtail catheter was introduced in the left ventricle and a 30-degree GUO view of the left ventricle was obtained. Following that, catheter and sheath were removed. Hemostasis was obtained with deployment of TR band. There was no immediate complication. The patient was returned to his room in stable condition. Of note, the patient received 5000 units of intravenous heparin as well as intra-arterial verapamil. FINDINGS: LEFT MAIN: This is a large-sized vessel bifurcating into the left circumflex and left anterior descending artery. Left main coronary artery has no evidence of high-grade stenosis. LEFT ANTERIOR DESCENDING ARTERY: This is a large-sized vessel reaching to the apex with a wraparound apex segment giving rise to a large diagonal branch. Following the diagonal branch, there was mild plaque of 10%. The rest of the vessel has no high- grade stenosis. LEFT CIRCUMFLEX: This is a nondominant vessel giving rise to 2 obtuse marginal branches. The first one is large in caliber. The left circumflex as well as branches have no evidence of obstructive coronary artery disease. RIGHT CORONARY ARTERY: This is a large dominant vessel bifurcating into PDA and posterolateral segment and branches. The right coronary artery as well as branches have no evidence of obstructive coronary artery disease. LEFT VENTRICULOGRAM: Left ventriculogram is performed in 30-degree GUO view and revealed normal left ventricular size and systolic function. The ejection fraction is 60%. There was no significant mitral regurgitation. HEMODYNAMICS: There was no gradient across the aortic valve. The left ventricle end-diastolic pressure was 10 to 12 mmHg. CONCLUSION: 1. Mild plaque in the mid left anterior descending artery. 2. Normal left ventricular size and systolic function. RECOMMENDATION: In view of finding anatomy, I recommend continue medical therapy. The patient will be initiated on anticoagulation and re-evaluated regarding the need to undergo cardioversion to restore normal sinus rhythm. Those findings and recommendation were discussed with the patient and in full understanding and agreement. Duration of procedure is 20 minutes. WINNIE / MAGANN: [id number] /
--- NOTE | 2020-09-12 10:18 | LTR ---
September 12, 2020 Re: Shon Dumas Dear Dr. Fernandez: I had the opportunity to perform cardiac catheterization on Mr. Dumas at [facility] on the 12 of September and a full copy of the procedure note will be forwarded to you. In brief, he was found to have no evidence of significant obstructive coronary artery disease and based on those findings I recommend continue medical therapy and will initiate anticoagulation because of his new diagnosis of atrial flutter and if he continues to be in atrial flutter, then I would proceed with cardioversion to restore sinus mechanism. I will keep you updated on his progress. Thank you again for allowing me the opportunity to participate in his care. Please feel free to call for any questions. Sincerely yours, MD CLAIR AlemanL / DENNIS: [id number] /
--- NOTE | 2020-09-12 10:29 | ECHOF ---
Referral Reason:Atrial flutter, new onset MEASUREMENTS -------- HEIGHT: 182.9 cm WEIGHT: 159.2 kg BP: RVIDd: 4.4 cm (< 3.3) IVSd: 1.5 cm (0.6 - 1.1) LVIDd: 5.3 cm (3.9 - 5.3) LVPWd: 2.1 cm (0.6 - 1.1) IVSs: 1.8 cm LVIDs: 4.2 cm LVPWs: 2.1 cm LA Diam: 5.2 cm (2.7 - 3.8) Ao Diam: 3.8 cm (2.0 - 3.7) AV Cusp: 2.2 cm (1.5 - 2.6) LA Diam: 5.2 cm (2.7 - 3.8) RAP: 5.00 mmHg RVSP: 23.88 mmHg FINDINGS -------- Atrial fibrillation. Morbid Obesity This was a techncally difficult study with suboptimal views, , Lumason utilized for enhancement of im ages. The left ventricular size is normal. There is moderate concentric left ventricular hypertrophy. O verall left ventricular systolic function is mildly impaired with, an EF between 45 - 50 %. Inferio r Hypokinesis The right ventricle is moderate to severely enlarged. The left atrium is markedly dilated. The right atrial size is normal. The aortic valve is trileaflet, and appears structurally normal. No aortic stenosis or regurgitation. Mild mitral regurgitation is present. Mild tricuspid regurgitation present. Right ventricular systolic pressure is normal at < 35 mmHg. There is no pulmonic regurgitation present. The aortic root size is normal. There is a trivial pericardial effusion present. CONCLUSIONS -------- 1. Morbid Obesity 2. This was a techncally difficult study with suboptimal views, , Lumason utilized for enhancement of images. 3. The left ventricular size is normal. 4. There is moderate concentric left ventricular hypertrophy. 5. Overall left ventricular systolic function is mildly impaired with, an EF between 45 - 50 %. 6. Inferior Hypokinesis 7. The right ventricle is moderate to severely enlarged. 8. The left atrium is markedly dilated. 9. The right atrial size is normal. 10. Mild mitral regurgitation is present. 11. Mild tricuspid regurgitation present. 12. There is no pulmonic regurgitation present. 13. The aortic root size is normal. 14. There is a trivial pericardial effusion present. CIGARETTE LIGHTER REPAIRER: Nat Abrams RDCS
[2020-09-12 12:05] LABS: Glucose,Whole Blood 203 mg/dL (75-99)
[2020-09-12] MEDS: LISINOPRIL-HCTZ 20-12.5 MG 1 EACH TAB PO SCH (12:38)
[2020-09-12] MEDS: INSULIN ASPART (NovoLOG) 100 UNIT/ML VIAL SQ SCH ×3 (12:39→21:23)
[2020-09-12 13:52] LABS: Hemoglobin A1C 5.9 % (4.0-6.0)
[2020-09-12 17:07] LABS: Glucose,Whole Blood 129 mg/dL (75-99)
--- NOTE | 2020-09-12 18:56 | P.HPIM ---
History of Present Illness H&P Date: 09/12/20 Chief Complaint: Rapid heartbeat, dyspnea, diaphoresis This pleasant 54-year-old male who is well known to her office presented to the emergency room with rapid heartbeat, dyspnea, and diaphoresis. He states he was working on the treadmill on 09/09/2020, and felt increased heart rate different than he has felt in the past with his regular exercise work out [place]. He states as he has been in his treadmill on 09/10/2020 he had decreased his timeframe on the treadmill to 3-12 minutes intervals, at a slower speed, and again noticed the change in his heart rate and increase sweating more so than normally noted. He denied any chest pain at the time. 09/11/2020, while at work he noticed he felt dyspneic and extreme diaphoresis while walking a normal pace around his office building, he did notice a dizzy spell and contacted his who called 911 and had him transferred to the emergency room where he was found to be in atrial flutter with controlled rate in the 80s. He is admitted to the hospital for cardiac workup. Review of Systems Cardiovascular: Reports dyspnea on exertion, Reports irregular heart beat, Reports lightheadedness, Reports palpitations, Reports shortness of breath Past Medical History Past Medical History: Atrial Flutter, Cancer, Diabetes Mellitus, Hypertension, Rheumatoid Arthritis (RA), Sleep Apnea/CPAP/BIPAP, Thyroid Disorder Additional Past Medical History / Comment(s): HX of Prostate CA; uses CPAP, hx of colon polyps, Lower back pain with sciatica eric. History of Any Multi-Drug Resistant Organisms: None Reported Past Surgical History: Appendectomy, Heart Catheterization, Hernia Repair, Joint Replacement Additional Past Surgical History / Comment(s): Eric. knee replacements; Eric. knee arthroscopies, Prostatectomy, Colonoscopy (jul 2019) Past Anesthesia/Blood Transfusion Reactions: No Reported Reaction Past Psychological History: No Psychological Hx Reported Smoking Status: Never smoker Past Alcohol Use History: Occasional Past Drug Use History: None Reported - Past Family History Father Family Medical History: Cancer Additional Family Medical History / Comment(s): colon cancer and prostate cancer Mother Family Medical History: Cancer Additional Family Medical History / Comment(s): liver cancer; breast cancer Brother(s) Family Medical History: Cancer Additional Family Medical History / Comment(s): colon Medications and Allergies Home Medications and Allergies Comment(s): Medications and allergies reviewed Home Medications Medication Instructions Recorded Confirmed Type Levothyroxine Sodium [Levoxyl] 100 mcg PO DAILY 03/21/17 09/11/20 History Lisinopril-Hctz 20-12.5 mg 2 tab PO DAILY 03/21/17 09/11/20 History [Zestoretic 20-12.5] Atorvastatin [Lipitor] 20 mg PO HS 10/11/19 09/11/20 History Etanercept [Enbrel] 50 mg SQ WE 10/11/19 09/11/20 History metFORMIN HCL [Glucophage] 500 mg PO BID 10/13/19 09/11/20 History Ibuprofen [Motrin] 600 mg PO BID 09/11/20 09/11/20 History Semaglutide [Ozempic] 0.5 mg SQ MO 09/11/20 09/11/20 History Apixaban [Eliquis] 5 mg PO BID #60 tab 09/12/20 Rx Allergies Allergy/AdvReac Type Severity Reaction Status Date / Time Penicillins Allergy Rash/Hives Verified 09/11/20 21:29 hydrocodone [From [place]] AdvReac headache;di Verified 09/11/20 21:29 zziness Physical Exam Vitals: Vital Signs Temp Pulse Pulse Pulse Resp BP BP 09/12/20 16:00 56 L 16 152/85 09/12/20 13:25 78 16 140/80 09/12/20 12:25 73 16 140/82 09/12/20 11:25 74 16 133/80 09/12/20 10:55 76 16 152/98 09/12/20 10:25 76 16 146/96 09/12/20 10:10 57 L 16 141/80 09/12/20 09:55 59 L 16 156/94 09/12/20 08:00 97.7 F 96 16 09/12/20 04:00 97.6 F 57 L 18 112/75 09/12/20 00:00 97.4 F L 61 16 164/72 09/11/20 21:32 80 18 136/85 09/11/20 20:27 91 18 123/87 09/11/20 19:56 95 18 118/82 09/11/20 18:50 99.4 F 87 18 121/85 Pulse Ox 09/12/20 16:00 97 09/12/20 13:25 09/12/20 12:25 09/12/20 11:25 97 09/12/20 10:55 09/12/20 10:25 09/12/20 10:10 09/12/20 09:55 09/12/20 08:00 96 09/12/20 04:00 96 09/12/20 00:00 97 09/11/20 21:32 98 09/11/20 20:27 97 09/11/20 19:56 97 09/11/20 18:50 97 Intake and Output 09/12/20 09/12/20 09/12/20 06:59 14:59 22:59 Intake Total 100.659 795 240 Output Total 300 Balance 100.659 795 -60 Intake: IV 150 Intake, IV Titration 100.659 525 Amount Diltiazem 125 mg In 29.333 Sodium Chloride 0.9% 100 ml @ 5 MG/HR 5 mls/hr IV .Q24H LUCIANA Rx#:[id number] Heparin Sod,Pork in 0.45% 71.326 NaCl 25,000 unit In 0.45 % NaCl 1 250ml.bag @ 6.58 UNITS/KG/HR 9.999 mls/hr IV .Q24H LUCIANA Rx#: [id number] Sodium Chloride 0.9% 1, 525 000 ml @ 75 mls/hr IV . [id number] LUCIANA Rx#:[id number] Oral 120 240 Output: Urine 300 Other: # Voids 1 Weight 159.3 kg - Constitutional General appearance: cooperative, no acute distress, obese - EENT Eyes: dentition normal, normal appearance Ears: bilateral: normal - Respiratory Respiratory: bilateral: CTA - Cardiovascular Rhythm: irregularly irregular Abnormal Heart Sounds: systolic murmur, other - Gastrointestinal General gastrointestinal: normal bowel sounds, soft - Integumentary Integumentary: normal - Psychiatric Psychiatric: A&O x's 3, appropriate affect, intact judgment & insight Results CBC & Chem 7: 09/12/20 04:55 09/11/20 19:40 Labs: Abnormal Lab Results - Last 24 Hours (Table) 09/11/20 09/11/20 09/11/20 Range/Units 19:40 19:40 22:46 WBC 10.9 H (3.8-10.6) k/uL Neutrophils # 8.8 H (1.3-7.7) k/uL Glucose 173 H (74-99) mg/dL POC Glucose (mg/dL) (75-99) mg/dL Magnesium 1.5 L (1.6-2.3) mg/dL Troponin I 0.038 H* (0.000-0.034) ng/mL TSH 5.080 H (0.465-4.680) mIU/L 09/12/20 09/12/20 09/12/20 Range/Units 01:33 06:01 11:48 WBC (3.8-10.6) k/uL Neutrophils # (1.3-7.7) k/uL Glucose (74-99) mg/dL POC Glucose (mg/dL) 165 H 203 H (75-99) mg/dL Magnesium (1.6-2.3) mg/dL Troponin I 0.036 H* (0.000-0.034) ng/mL TSH (0.465-4.680) mIU/L 09/12/20 Range/Units 16:55 WBC (3.8-10.6) k/uL Neutrophils # (1.3-7.7) k/uL Glucose (74-99) mg/dL POC Glucose (mg/dL) 129 H (75-99) mg/dL Magnesium (1.6-2.3) mg/dL Troponin I (0.000-0.034) ng/mL TSH (0.465-4.680) mIU/L Abdominal x-ray: report reviewed Thrombosis Risk Factor Assmnt - Choose All That Apply Any of the Below Risk Factors Present?: Yes Each Factor Represents 1 point: Age 41-60 years, Obesity (BMI >25), Swollen legs (current) Other Risk Factors: No Other congenital or acquired thrombophilia - If yes, enter type in comment: No Thrombosis Risk Factor Assessment Total Risk Factor Score: 3 Thrombosis Risk Factor Assessment Level: Moderate Risk Assessment and Plan Assessment: New onset atrial flutter of unknown duration Mild troponin elevation History of hypertension History of rheumatoid arthritis History of diabetes History of hyperlipidemia (1) New onset atrial flutter Narrative/Plan: Cardiology consultation Anticoagulation therapy Medication adjustments per cardiology Current Visit: Yes Status: Acute Code(s): I48.92 - UNSPECIFIED ATRIAL FLUTTER SNOMED Code(s): 9893340 Plan: Continue telemetry monitoring Continue cardiology consultation and recommendations and treatment plan Continue anticoagulation therapy as prescribed Continue medications as prescribed
[2020-09-12] MEDS: APIXABAN 5 MG TAB PO SCH (19:55)
[2020-09-12] MEDS ORDERED: ATORVASTATIN 20 MG TAB PO SCH (21:00)
[2020-09-12 21:01] LABS: Glucose,Whole Blood 146 mg/dL (75-99)
[2020-09-13 01:39] VITALS: RESP 18
[2020-09-13 06:00] LABS: Glucose,Whole Blood 152 mg/dL (75-99)
[2020-09-13] MEDS: LEVOTHYROXINE 100 MCG TAB PO SCH (06:24)
[2020-09-13] MEDS: INSULIN ASPART (NovoLOG) 100 UNIT/ML VIAL SQ SCH ×3 (06:24→18:13)
[2020-09-13] MEDS ORDERED: HEPARIN SODIUM,PORCINE 2,500 UNIT in SODIUM CHLORIDE 0.9% 250 ML IRRIGATION PRN (07:00)
[2020-09-13] MEDS ORDERED: HEPARIN SODIUM,PORCINE 10,000 UNIT in SODIUM CHLORIDE 0.9% 1,000 ML IRRIGATION PRN (07:00)
--- NOTE | 2020-09-13 07:42 | P.PN ---
Subjective Progress Note Date: 09/13/20 Principal diagnosis: Rapid heartbeat improved Dyspnea improved Diaphoresis improved Patient resting comfortably in bed this morning, denies any chest pain shortness of breath or diaphoresis, discussed starting eliquis for anticoagulation. He is oriented 3 and in no acute distress Objective - Vital Signs Vital signs: Vital Signs Temp 98.2 F 09/13/20 04:00 Pulse 75 09/13/20 04:00 Resp 18 09/13/20 04:00 BP 141/87 09/13/20 04:00 Pulse Ox 96 09/13/20 04:00 Intake & Output 09/12/20 09/13/20 09/13/20 18:59 06:59 18:59 Intake Total 1035 Output Total 300 900 Balance 735 -900 Weight 160.7 kg Intake: IV 150 Intake, IV Titration 525 Amount Sodium Chloride 0.9% 1, 525 000 ml @ 75 mls/hr IV . [id number] LUC[facility] Rx#:[id number] Oral 360 Output: Urine 300 900 - Constitutional General appearance: Present: cooperative, mild distress, obese - EENT Ears: bilateral: normal - Respiratory Respiratory: bilateral: CTA - Cardiovascular Rhythm: irregularly irregular Abnormal Heart Sounds: Present: systolic murmur - Gastrointestinal General gastrointestinal: Present: normal bowel sounds - Psychiatric Psychiatric: Present: A&O x's 3, appropriate affect, intact judgment & insight - Labs CBC & Chem 7: 09/12/20 04:55 09/11/20 19:40 Labs: Abnormal Lab Results - Last 24 Hours (Table) 09/12/20 09/12/20 09/12/20 Range/Units 11:48 16:55 20:59 POC Glucose (mg/dL) 203 H 129 H 146 H (75-99) mg/dL 09/13/20 Range/Units 05:48 POC Glucose (mg/dL) 152 H (75-99) mg/dL Assessment and Plan Assessment: New onset atrial flutter of unknown duration Mild troponin elevation History of hypertension History of rheumatoid arthritis History of diabetes History of hyperlipidemia (1) New onset atrial flutter Narrative/Plan: Cardiology consultation Anticoagulation therapy Medication adjustments per cardiology Current Visit: Yes Status: Acute Code(s): I48.92 - UNSPECIFIED ATRIAL FLUTTER SNOMED Code(s): 0974413 Plan: Continue telemetry monitoring Continue cardiology consultation and recommendations and treatment plan Continue anticoagulation therapy as prescribed Continue medications as prescribed Plan for discharge after cardiac clearance
[2020-09-13 08:24] LABS: ALT 48 U/L (4-49); AST 35 U/L (17-59); African American GFR (CKD) >90 (>60 ml/min/1.73 sqM); Albumin 3.9 g/dL (3.5-5.0); Alkaline Phosphatase 37 U/L (38-126); Anion Gap 6 mmol/L; Blood Urea Nitrogen 16 mg/dL (9-20); Calcium 9.1 mg/dL (8.4-10.2); Carbon Dioxide 29 mmol/L (22-30); Chloride 104 mmol/L (98-107); Glucose 149 mg/dL (74-99); Magnesium 1.8 mg/dL (1.6-2.3); Non-African American GFR(CKD) >90 (>60 ml/min/1.73 sqM); Potassium 4.1 mmol/L (3.5-5.1); Sodium 139 mmol/L (137-145); Total Bilirubin 1.1 mg/dL (0.2-1.3); Total Protein 6.8 g/dL (6.3-8.2)
[2020-09-13 08:33] LABS: Basophils # (A) 0.1 k/uL (0-0.2); Basophils % (A) 1 %; Eosinophils # (A) 0.4 k/uL (0-0.7); Eosinophils % (A) 4 %; HCT 45.9 % (39.0-53.0); HGB 16.3 gm/dL (13.0-17.5); Lymphocytes # (A) 2.1 k/uL (1.0-4.8); Lymphocytes % (A) 24 %; MCH 32.7 pg (25.0-35.0); MCHC 35.6 g/dL (31.0-37.0); MCV 91.8 fL (80.0-100.0); Mean Platelet Volume 8.3; Monocytes # (A) 0.6 k/uL (0-1.0); Monocytes % (A) 7 %; Neutrophils # (A) 5.6 k/uL (1.3-7.7); Neutrophils % (A) 63 %; Platelet Count 187 k/uL (150-450); RDW 13.2 % (11.5-15.5); WBC 8.8 k/uL (3.8-10.6)
--- NOTE | 2020-09-13 08:55 | PN ---
PROGRESS NOTE Mr. Dumas is a 54-year-old male who presented yesterday with symptoms of dyspnea and chest discomfort and was found to be in atrial flutter. He had minimal troponin elevation, underwent cardiac catheterization and found to have no evidence of obstructive coronary artery disease. He is doing well this morning. His breathing is stable. He continued to be in atrial flutter. He denies any dizziness or palpitation. His rate is controlled. His left ventriculogram showed a normal left ventricular size and systolic function by echocardiography. The estimated ejection fraction 45% to 50% with questionable inferior wall hypokinesis. He continues to be on Eliquis 5 mg twice a day, Lipitor 20 mg daily, lisinopril HCT 20-12.5 mg daily, metoprolol tartrate 25 mg twice a day. PHYSICAL EXAMINATION: Blood pressure running in the 140s with the heart rate in the 70s. LUNGS: Clear. HEART: Irregular, irregular. S1, S2. No S3. No rub. ABDOMEN: Soft, nontender. EXTREMITIES: No edema. Right radial pulse intact. LAB DATA: Lab data revealed a BUN and creatinine of 16 and 0.73, potassium 4.1. IMPRESSION: 1. Atrial flutter, recent. 2. Mild troponin elevation with no evidence of myocardial infarction, most likely related to the atrial flutter. 3. History of hypertension. 4. Hyperlipidemia. 5. Diabetes mellitus. RECOMMENDATION: Patient should be able to be discharged home today and followed as an outpatient. If he continues to be in atrial fibrillation, then I would recommend to proceed with a cardioversion to restore sinus mechanism. MMODL / IJN: [id number] /
[2020-09-13] MEDS: METOPROLOL TARTRATE 25 MG TAB PO SCH (09:04)
[2020-09-13] MEDS: LISINOPRIL-HCTZ 20-12.5 MG 1 EACH TAB PO SCH (09:04)
[2020-09-13] MEDS: APIXABAN 5 MG TAB PO SCH (09:04)
--- NOTE | 2020-09-13 11:39 | P.DS ---
Providers Date of admission: 09/11/20 21:09 Expected date of discharge: 09/13/20 Attending physician: Brandon Fernandez Consults: 09/11/20 21:10 Consult Physician Urgent Consulting Provider: Yariel Henriquez Consult Reason/Comments: a flutter Do you want consulting provider notified?: Yes Primary care physician: Brandon Fernandez - Discharge Diagnosis(es) (1) New onset atrial flutter Continue Eliquis and Metoprolol Follow up with Cardiology as directed Current Visit: Yes Status: Acute Hospital Course: Admitted to the hospital for new onset atrial flutter, cardiology consulted, heparin drip initiated, continuous telemetry, echo, cardiac cath performed, medications continued, beta larry and eliquis initiated, cleared by cardiology for discharge Plan - Discharge Summary Discharge Rx Participant: No New Discharge Prescriptions: New Apixaban [Eliquis] 5 mg PO BID #60 tab Metoprolol Tartrate [Lopressor] 25 mg PO BID 30 Days #60 tab Continue Lisinopril-Hctz 20-12.5 mg [Zestoretic 20-12.5] 2 tab PO DAILY Levothyroxine Sodium [Levoxyl] 100 mcg PO DAILY Etanercept [Enbrel] 50 mg SQ WE Atorvastatin [Lipitor] 20 mg PO HS Semaglutide [Ozempic] 0.5 mg SQ MO metFORMIN HCL [Glucophage] 500 mg PO BID #0 Discontinued Ibuprofen [Motrin] 600 mg PO BID Discharge Medication List Levothyroxine Sodium [Levoxyl] 100 mcg PO DAILY 03/21/17 [History] Lisinopril-Hctz 20-12.5 mg [Zestoretic 20-12.5] 2 tab PO DAILY 03/21/17 [History] Atorvastatin [Lipitor] 20 mg PO HS 10/11/19 [History] Etanercept [Enbrel] 50 mg SQ WE 10/11/19 [History] Semaglutide [Ozempic] 0.5 mg SQ MO 09/11/20 [History] Apixaban [Eliquis] 5 mg PO BID #60 tab 09/12/20 [Rx] Metoprolol Tartrate [Lopressor] 25 mg PO BID 30 Days #60 tab 09/13/20 [Rx] metFORMIN HCL [Glucophage] 500 mg PO BID #0 09/13/20 [Rx] Follow up Appointment(s)/Referral(s): Brandon Fernandez MD [Primary Care Provider] - 1-2 days Yariel Henriquez MD [Family Provider] - 1 Week Activity/Diet/Wound Care/Special Instructions: Eliquis is covered by insurance, filled at [facility] with free coupon. $10 copay card will be given by pharmacy to reduce your copay from $50/month to $10/month. Resume metformin in 24 hours Discharge Disposition: HOME SELF-CARE
[2020-09-13 12:09] LABS: Glucose,Whole Blood 130 mg/dL (75-99)
[2020-09-13 17:13] LABS: Glucose,Whole Blood 122 mg/dL (75-99)
[2020-09-13 17:20] VITALS: BP 146/86; PULSE 79; TEMP 97.2
[2020-09-18] MEDS ORDERED: NON FORMULARY DRUG (Semaglutide [Ozempic] 0.25 MG/0.2 ML Pen.Injctr) SQ SCH (06:06)
== END 2020-09-13 18:29 | disposition home or self-care (01) | DRG 287 ==
LOC: EC 18:17 → 3SCARD 21:09
PROVIDERS: ADMIT Family Medicine; ATTEND Family Medicine
PROC: B2111ZZ Fluoroscopy of Multiple Coronary Arteries using Low Osmolar Contrast (ICD-10-PCS; principal; 2020-09-12 09:00)
PROC: 4A023N7 Measurement of Cardiac Sampling and Pressure, Left Heart, Percutaneous Approach (ICD-10-PCS; principal; 2020-09-12 09:00)
PROC: B2151ZZ Fluoroscopy of Left Heart using Low Osmolar Contrast (ICD-10-PCS; principal; 2020-09-12 09:00)
DX: I48.92 Unspecified atrial flutter (principal); E11.9 Type 2 diabetes mellitus without complications; E78.5 Hyperlipidemia, unspecified; I10 Essential (primary) hypertension; I48.91 Unspecified atrial fibrillation; M06.9 Rheumatoid arthritis, unspecified; M54.32 Sciatica, left side; M54.31 Sciatica, right side; R79.89 Other specified abnormal findings of blood chemistry; G47.30 Sleep apnea, unspecified; Z99.89 Dependence on other enabling machines and devices; Z88.5 Allergy status to narcotic agent; Z88.0 Allergy status to penicillin; Z86.010 Personal history of colon polyps; E07.9 Disorder of thyroid, unspecified; Z79.01 Long term (current) use of anticoagulants; I25.10 Atherosclerotic heart disease of native coronary artery without angina pectoris; Z79.84 Long term (current) use of oral hypoglycemic drugs; Z79.890 Hormone replacement therapy; Z79.899 Other long term (current) drug therapy; Z80.0 Family history of malignant neoplasm of digestive organs; Z80.3 Family history of malignant neoplasm of breast; Z80.42 Family history of malignant neoplasm of prostate; Z85.46 Personal history of malignant neoplasm of prostate; Z96.653 Presence of artificial knee joint, bilateral; Z90.49 Acquired absence of other specified parts of digestive tract
CPT/HCPCS: 36415; 71046; 80053; 83036; 83735; 84439; 84443; 84481; 84484; 85025; 85610; 85730; 93005; 93306; 93458; 96365; 96366; 99291

== ENCOUNTER → 2020-10-05 | Day surgery (SDC) | payer BC ==
[2020-10-02 10:45] VITALS: BMI 47.3
[~2020-10-05] MED LIST changes: +APIXABAN 5 MG TAB PO SCH; +ATORVASTATIN 20 MG TAB PO SCH; -LACTATED RINGERS 1,000 ML IV SCH; +LEVOTHYROXINE 100 MCG TAB PO SCH; -LIDOCAINE 1% 20 ML VIAL (10MG/ML) FOR IV START INTRADERMA PRN; +LIDOCAINE 1% INJ 10MG/ML (20 ML MDV) ONE; +LISINOPRIL-HCTZ 20-12.5 MG 1 EACH TAB PO SCH; +METOPROLOL TARTRATE 25 MG TAB PO SCH; +SODIUM CHLORIDE 0.9% 1,000 ML IV SCH; +metFORMIN 500 MG TAB PO SCH
[2020-10-05 07:51] LABS: Glucose,Whole Blood 158 mg/dL (75-99)
[2020-10-05 08:54] VITALS: TEMP 98
[2020-10-05 09:20] VITALS: RESP 20
--- NOTE | 2020-10-05 09:56 | CE ---
CARDIAC ELECTROPHYSIOLOGY REPORT CARDIOVERSION PROCEDURE: INDICATION: Left atrial flutter. PROCEDURE: After explaining the procedure to the patient, its risks and the complications after obtaining transesophageal echocardiogram and obtaining sedated state, a biphasic synchronized cardioversion using 200 joules was performed with buddhism of normal sinus rhythm. There was no immediate complication. WINNIE / DENNIS: [id number] /
[2020-10-05 10:52] VITALS: BP 136/87; PULSE 68
--- NOTE | 2020-10-05 11:26 | ECHOT ---
TRANSESOPHAGEAL ECHOCARDIOGRAM INDICATION: Evaluation left atrial appendage. PROCEDURE: After explaining the procedure to the patient, its risks and the complications, his blood pressure, heart rate, O2 saturation were monitored. The throat was sprayed with Cetacaine. He received sedation per Anesthesia Department. The probe was introduced in the esophagus without difficulty. Images were obtained. Following that, the probe was removed. There was no immediate complication. FINDINGS: Left atrial size is mildly dilated. Left atrial appendage is normal. Left ventricular size and systolic function normal. The aortic valve, mitral valve and tricuspid valve are normal. Descending thoracic aorta appears to be normal. No pericardial effusion was noted. Contrast bubble study revealed no evidence of shunting across the interatrial septum. Doppler pulse wave and color Doppler obtained and revealed mild to moderate mitral with mild tricuspid regurgitation. There was no shunting by color Doppler study. CONCLUSION: 1. Mildly dilated left atrium. 2. Normal left ventricular size and systolic function. 3. Normal appearance left atrial appendage. 4. Mild to moderate mitral with mild tricuspid regurgitation. 5. No shunting across the interatrial septum. MMODL / IJN: [id number] /
== END | disposition home or self-care (01) ==
LOC: CATHCVL 07:28
PROVIDERS: ATTEND Internal Medicine Interventional Cardiology
DX: I08.1 Rheumatic disorders of both mitral and tricuspid valves (principal); I48.3 Typical atrial flutter; I48.91 Unspecified atrial fibrillation; E78.2 Mixed hyperlipidemia; I10 Essential (primary) hypertension; E11.9 Type 2 diabetes mellitus without complications; I25.10 Atherosclerotic heart disease of native coronary artery without angina pectoris; G47.33 Obstructive sleep apnea (adult) (pediatric); M06.9 Rheumatoid arthritis, unspecified; E66.9 Obesity, unspecified; R60.0 Localized edema; Z79.01 Long term (current) use of anticoagulants; Z98.890 Other specified postprocedural states; Z79.890 Hormone replacement therapy; Z79.899 Other long term (current) drug therapy; Z79.84 Long term (current) use of oral hypoglycemic drugs; Z88.6 Allergy status to analgesic agent; Z88.5 Allergy status to narcotic agent; Z88.0 Allergy status to penicillin; Z96.659 Presence of unspecified artificial knee joint; Z90.49 Acquired absence of other specified parts of digestive tract; Z90.89 Acquired absence of other organs; Z99.89 Dependence on other enabling machines and devices; Z68.42 Body mass index [BMI] 45.0-49.9, adult
CPT/HCPCS: 93312; 93320; 93325; 92960; J2001; J2704

== ENCOUNTER → 2020-11-01 | Outpatient (CLI) | payer BC ==
[2020-11-01 20:36] LABS: Anion Gap 9.4 mmol/L (4.00-12.00); BUN/Creat Ratio 21.11 Ratio (12.00-20.00); Calcium 9.4 mg/dL (8.7-10.3); Carbon Dioxide 29.6 mmol/L (21.6-31.8); Chol/HDL Ratio 3.79; LDL Cholesterol,Calculated 64.2 mg/dL (0.0-131.0); Non-African American GFR(CKD) 95.8 (60.0-200.0); Potassium 4.5 mmol/L (3.5-5.5); VLDL Calculation 27.8 mg/dL (5.00-40.00)
[2020-11-01 20:45] LABS: T4, Free (Free Thyroxine) 1.3 ng/dL (0.80-1.80)
[2020-11-01 21:07] LABS: Hemoglobin A1C 6.3 % (4.0-6.0)
[2020-11-02 03:30] LABS: Urine Creatinine 228.2 mg/dL
== END | disposition home or self-care (01) ==
LOC: LABWHC1 08:36
PROVIDERS: ATTEND Internal Medicine
DX: E11.65 Type 2 diabetes mellitus with hyperglycemia (principal); E03.9 Hypothyroidism, unspecified
CPT/HCPCS: 36415; 80048; 80061; 82043; 82570; 83036; 84439; 84443

== ENCOUNTER → 2021-04-12 | Outpatient (CLI) | payer BC ==
--- NOTE | 2021-04-13 01:33 | SFUN ---
SLEEP CENTER FOLLOW UP NOTE DATE OF SERVICE: 04/12/2021. A 55-year-old gentleman has been followed in Sleep Center for treatment of obstructive sleep apnea-hypopnea syndrome. Patient continued to use his BiPAP equipment every night for the whole night, getting his supplies on time. No snoring with the machine. [place] Sleepiness Scale today is 4. I checked BiPAP unit, maximal inspiratory pressure 17, minimal expiratory pressure 8, average pressure 13.3/9.3, usage 30/30 nights for more than 4 hours, average 7.4 hours per night. Leak is 8 L/minute which is good range. Apnea-hypopnea index is only 0.7, which is perfect. MEDICATIONS: Atorvastatin 20 mg once a day, Eliquis 5 mg twice a day, Enbrel 50 mg injections once a week. Levothyroxine 100 mcg once a day, lisinopril hydrochlorothiazide 20-12.5 mg 2 tablets in the morning, metformin 500 mg twice a day, metoprolol 25 mg twice a day, Zyrtec 10 mg in the evening, amlodipine 5 mg once a day. PHYSICAL EXAMINATION: GENERAL: Patient in no distress. BP 147/83, HR 70, RR 18, height 6 feet 0 inches, weight 350.4, body mass index 47.4, temperature 97.1. Oxygen saturation at room air 97%. Oropharynx: Extremely low position of soft palate. Mallampati 4. NECK: Supple, no JVD. Thyroid is not palpable. LUNGS: Clear to percussion and to auscultation. Good air exchange. No wheezing or rhonchi. HEART: S1, S2 regular. No murmurs, gallops, or rubs. ABDOMEN: Obese. Soft and nontender. Bowel sounds are present. No organomegaly appreciated. EXTREMITIES: No clubbing or cyanosis. ROBOTICS TECHNICIAN: Awake, alert, and oriented X3. Cranial nerves 2 to 7 intact. There is no fasciculation or atrophy. noted. No focal deficits observed. IMPRESSION: 1. Extremely severe obstructive sleep apnea-hypopnea syndrome; apnea-hypopnea index during diagnostic sleep study 106 on full control with BiPAP. The patient demonstrated 100% compliance with treatment. 2. Hypertension. 3. History of prostate carcinoma, status post prostatectomy. 4. Status post bilateral knee replacement. 5. Status post tonsillectomy. 6. Status post hernia repair. PLAN: 1. Patient will continue to use PAP equipment every night for the whole night. 2. Sleep hygiene with regular time in bed for at least 7-1/2 to 8 hours. 3. Precautions related to driving. No driving if feeling sleepiness. 4. I will maintain all necessary prescription for PAP supplies including mask, tube, filters. 5. Watching weight. 6. Follow-up visit in 6 months or earlier if patient has any problems. I spent with the patient in documentation 30 minutes. Thank you very much for allowing me to participate in management of your patient. Sincerely, Gilberto Rice MD, PhD, FAASM Diplomat of [place] [employer] Sleep Medicine Board of [place] [employer] Phlebotomy Technician of [facility] [place] MMBOOML / MAGANN: [id number] /
== END ==
LOC: SLEEP 13:02
PROVIDERS: ATTEND Internal Medicine
DX: G47.33 Obstructive sleep apnea (adult) (pediatric) (principal); I10 Essential (primary) hypertension; Z85.46 Personal history of malignant neoplasm of prostate; Z96.653 Presence of artificial knee joint, bilateral; Z90.89 Acquired absence of other organs; Z98.890 Other specified postprocedural states; Z88.0 Allergy status to penicillin; Z88.5 Allergy status to narcotic agent

== ENCOUNTER → 2021-09-21 | Outpatient (CLI) | payer BC ==
[~2021-09-21] MED LIST changes: -APIXABAN 5 MG TAB PO SCH; -ATORVASTATIN 20 MG TAB PO SCH; +BAMLANIVIMAB (EUA) 700 MG, ETESEVIMAB (EUA) 1,400 MG in SODIUM CHLORIDE 0.9% 100 ML IVPB NR; -LEVOTHYROXINE 100 MCG TAB PO SCH; -LIDOCAINE 1% INJ 10MG/ML (20 ML MDV) ONE; -LISINOPRIL-HCTZ 20-12.5 MG 1 EACH TAB PO SCH; -METOPROLOL TARTRATE 25 MG TAB PO SCH; -PROPOFOL 10 MG/ML 20 ML VIAL IV ONE; -SODIUM CHLORIDE 0.9% 1,000 ML IV SCH; +SODIUM CHLORIDE 0.9% 50 ML IVPB NR; +SODIUM CHLORIDE 0.9% 500 ML 500 ML in EMPTY BAG 1 BAG IV PRN; -metFORMIN 500 MG TAB PO SCH
[2021-09-21 13:01] VITALS: TEMP 98.5
[2021-09-21 15:20] VITALS: BP 127/85; PULSE 74; RESP 16
== END | disposition home or self-care (01) ==
LOC: PROCWHC3 11:58
PROVIDERS: ATTEND Family Medicine
DX: U07.1 COVID-19 (principal)
CPT/HCPCS: 96360; J3490; M0245

== ENCOUNTER 2022-02-14 11:00 | Day surgery (SDC) | payer BC ==
[~2022-02-14 11:00] MED LIST changes: -BAMLANIVIMAB (EUA) 700 MG, ETESEVIMAB (EUA) 1,400 MG in SODIUM CHLORIDE 0.9% 100 ML IVPB NR; +LACTATED RINGERS 1,000 ML IV SCH; +SODIUM CHLORIDE 0.9% 1,000 ML IV SCH; -SODIUM CHLORIDE 0.9% 50 ML IVPB NR; -SODIUM CHLORIDE 0.9% 500 ML 500 ML in EMPTY BAG 1 BAG IV PRN
[2022-02-14 11:34] LABS: Glucose,Whole Blood 146 mg/dL (75-99)
[2022-02-14] MEDS ORDERED: SODIUM CHLORIDE 0.9% 1,000 ML IV ONE (11:37)
[2022-02-14 12:17] LABS: African American GFR (CKD) >90 (>60 ml/min/1.73 sqM); Anion Gap 10 mmol/L; Blood Urea Nitrogen 19 mg/dL (9-20); Calcium 9.2 mg/dL (8.4-10.2); Carbon Dioxide 27 mmol/L (22-30); Chloride 104 mmol/L (98-107); Glucose 143 mg/dL (74-99); Non-African American GFR(CKD) >90 (>60 ml/min/1.73 sqM); Sodium 141 mmol/L (137-145)
[2022-02-14 12:42] LABS: Basophils # (A) 0.1 k/uL (0-0.2); Basophils % (A) 1 %; Eosinophils # (A) 0.2 k/uL (0-0.7); Eosinophils % (A) 3 %; HCT 47.8 % (39.0-53.0); HGB 16.8 gm/dL (13.0-17.5); Lymphocytes # (A) 1.8 k/uL (1.0-4.8); Lymphocytes % (A) 22 %; MCH 31.9 pg (25.0-35.0); MCHC 35.1 g/dL (31.0-37.0); MCV 90.7 fL (80.0-100.0); Mean Platelet Volume 9.2; Monocytes # (A) 0.6 k/uL (0-1.0); Monocytes % (A) 7 %; Neutrophils # (A) 5.2 k/uL (1.3-7.7); Neutrophils % (A) 65 %; Platelet Count 188 k/uL (150-450); RBC 5.27 m/uL (4.30-5.90); RDW 13.8 % (11.5-15.5)
[2022-02-14] MEDS ORDERED: MIDAZOLAM 2 MG/2 ML VIAL ONE (14:10)
[2022-02-14] MEDS ORDERED: PHENYLEPHRINE-0.9% NACL SYG 1,000 MCG/10 ML SYRINGE ONE (14:10)
[2022-02-14] MEDS ORDERED: fentaNYL (PF) 50 MCG/ML 2 ML AMP ONE (14:10)
[2022-02-14] MEDS ORDERED: ISOPROTERENOL 250 MCG/1.25 ML SYR IV ONE (14:10)
[2022-02-14] MEDS ORDERED: PROPOFOL 10 MG/ML 20 ML VIAL IV ONE (14:10)
[2022-02-14] MEDS ORDERED: LIDOCAINE 2% INJ 20 MG/ML (2 ML VIAL) ONE (14:10)
[2022-02-14] MEDS ORDERED: ROCURONIUM 10 MG/ML (5 ML VIAL) IV ONE (14:10)
[2022-02-14] MEDS ORDERED: SUCCINYLCHOLINE CHLORIDE VIAL 200 MG/10 ML VIAL IV ONE (14:10)
[2022-02-14] MEDS ORDERED: GLYCOPYRROLATE 0.2 MG/ML 2 ML VIAL ONE (14:10)
[2022-02-14] MEDS ORDERED: NEOSTIGMINE 1 MG/ML 10 ML VIAL ONE (14:10)
[2022-02-14] MEDS ORDERED: LIDOCAINE 1% PF 10 MG/ML (5 ML AMP) SQ ONE (14:52)
[2022-02-14] MEDS ORDERED: HEPARIN SODIUM (1,000 UNIT/ML) 1,000 UNIT in SODIUM CHLORIDE 0.9% 1,000 ML IRRIGATION ONE (16:36)
[2022-02-14] MEDS ORDERED: ACETAMINOPHEN TAB 325 MG TAB PO PRN (16:48)
[2022-02-14] MEDS ORDERED: ACETAMINOPHEN IV (For NPO) 1,000 MG in EMPTY BAG 1 BAG IVPB ONE (16:48)
--- NOTE | 2022-02-14 17:10 | P.EPPROC ---
- EP Procedure Note Electrophysiology Procedure Note: Procedure Typical atrial flutter ablation Diagnosis Symptomatic typical atrial flutter with tiredness 50 shortness of breath Refractory to therapy Status post successful ablation for typical atrial flutter Prolonged W[place] interval prolonged AH interval Abnormal AV node function Details Patient was brought to the EP lab in a fasting state. Written informed consent was obtained prior to the procedure. General anesthesia provided Venous sheaths placed in the right left femoral veins Diagnostic catheters, mapping catheters and intracardiac echo cath was placed Cath was placed in the high right atrium His bundle area coronary sinus and right atrium Intracardiac echo revealed normal LV function No left atrial appendage thrombus Pouch in the isthmus close to the eustachian ridge especially septally Patient was in atrial flutter at the start of the study cycle length 330 ms Continue mapping performed from the cavo tricuspid isthmus Cavo tricuspid isthmus dependency proven Electrical cardioversion performed with a 200 J biphasic shock Ablation performed in sinus rhythm Cavo tricuspid mapping performed, 3-D A complete line of block was made from the tricuspid annulus to the IVC and the eustachian ridge Bidirectional block was proven with differential pacing Isthmus conduction time close to 200 ms Diagnostic EP study performed thereafter On high dose Isuprel no atrial fibrillation induced AV node Wenckebach block 530 ms Sinus recovery times at 800 of 706 100 ms were 1070, 1260 and 1130 ms [place] sinus recovery times were within normal limits VA Wenckebach block 900 ms W[place] interval in sinus rhythm was 305 ms AH 200 ms HV interval 50 ms Patient tolerated the procedure well without any acute complications
[2022-02-14] MEDS ORDERED: ATORVASTATIN 20 MG TAB PO SCH (17:30)
[2022-02-14 20:08] LABS: Glucose,Whole Blood 200 mg/dL (75-99)
[2022-02-14] MEDS: APIXABAN 5 MG TAB PO SCH (20:29)
[2022-02-14] MEDS: metFORMIN 500 MG TAB PO SCH (20:29)
[2022-02-15] MEDS ORDERED: LEVOTHYROXINE 100 MCG TAB PO SCH (06:30)
[2022-02-15 07:23] LABS: Glucose,Whole Blood 171 mg/dL (75-99)
[2022-02-15] MEDS ORDERED: LISINOPRIL-HCTZ 20-12.5 MG 1 EACH TAB PO SCH (07:30)
[2022-02-15] MEDS: APIXABAN 5 MG TAB PO SCH (08:01)
[2022-02-15] MEDS: metFORMIN 500 MG TAB PO SCH (08:01)
[2022-02-15 08:37] VITALS: BP 133/81; PULSE 84; RESP 12; TEMP 98.1
--- NOTE | 2022-02-15 11:45 | P.DS ---
Providers Attending physician: Kiet Chavez Primary care physician: Brandon Fernandez [facility] Course: Patient is doing well. No chest discomfort dizziness or lightheadedness Groins of healed well He status post atrial flutter ablation On examination vitals are stable Heart sounds are normal breath sounds are clear Impression Typical atrial flutter Status post successful ablation Plan Continue anticoagulation Continue current medications Follow Dr. Henriquez Plan - Discharge Summary Discharge Rx Participant: No New Discharge Prescriptions: No Action Lisinopril-Hctz 20-12.5 mg [Zestoretic 20-12.5] 2 tab PO W/BRKFST Levothyroxine Sodium [Levoxyl] 100 mcg PO DAILY Etanercept [Enbrel] 50 mg SQ WE Atorvastatin [Lipitor] 20 mg PO W/SUPPER Semaglutide [Ozempic] 2 mg SQ MO Metoprolol Tartrate [Lopressor] 25 mg PO BID 30 Days #60 tab metFORMIN HCL [Glucophage] 500 mg PO BID #0 Cetirizine HCl [Zyrtec] 10 mg PO DAILY PRN PRN Reason: Allergy Symptoms Psyllium Husk (with Sugar) [Metamucil Powder] 1 tbsp PO DIRECTED PRN PRN Reason: Constipation Multivitamins, Thera [Multivitamin (formulary)] 1 tab PO DAILY Apixaban [Eliquis] 5 mg PO Q12HR Discharge Medication List Levothyroxine Sodium [Levoxyl] 100 mcg PO DAILY 03/21/17 [History] Lisinopril-Hctz 20-12.5 mg [Zestoretic 20-12.5] 2 tab PO W/BRKFST 03/21/17 [History] Atorvastatin [Lipitor] 20 mg PO W/SUPPER 10/11/19 [History] Etanercept [Enbrel] 50 mg SQ WE 10/11/19 [History] Semaglutide [Ozempic] 2 mg SQ MO 09/11/20 [History] Metoprolol Tartrate [Lopressor] 25 mg PO BID 30 Days #60 tab 09/13/20 [Rx] metFORMIN HCL [Glucophage] 500 mg PO BID #0 09/13/20 [Rx] Apixaban [Eliquis] 5 mg PO Q12HR 10/02/20 [History] Cetirizine HCl [Zyrtec] 10 mg PO DAILY PRN 10/02/20 [History] Multivitamins, Thera [Multivitamin (formulary)] 1 tab PO DAILY 10/02/20 [History] Psyllium Husk (with Sugar) [Metamucil Powder] 1 tbsp PO DIRECTED PRN 10/02/20 [History] Follow up Appointment(s)/Referral(s): Yariel Henriquez MD [STAFF PHYSICIAN] - 02/27/22 9:00 am
[2022-02-15 12:04] LABS: Glucose,Whole Blood 154 mg/dL (75-99)
[2022-02-18] MEDS ORDERED: NON FORMULARY DRUG (Semaglutide [Ozempic] 0.25 MG/0.2 ML Pen.Injctr) SQ SCH (09:00)
== END 2022-02-15 14:54 | disposition home or self-care (01) ==
LOC: CATHEP 11:00 → 6NMEDSUR 16:36 → CATHEP 02-15 14:54
PROVIDERS: ATTEND Internal Medicine Clinical Cardiac Electrophysiology
DX: I48.3 Typical atrial flutter (principal); M06.9 Rheumatoid arthritis, unspecified; E11.9 Type 2 diabetes mellitus without complications; I10 Essential (primary) hypertension; E78.5 Hyperlipidemia, unspecified; Z20.822 Contact with and (suspected) exposure to COVID-19; G47.33 Obstructive sleep apnea (adult) (pediatric); Z79.01 Long term (current) use of anticoagulants; Z79.890 Hormone replacement therapy; Z79.899 Other long term (current) drug therapy; Z88.5 Allergy status to narcotic agent; Z88.0 Allergy status to penicillin
CPT/HCPCS: 92960; 93623; 93662; 93653; 80048; 85025; 87635; C1759; C1894; C1769 ×2; C1760; C1766; C1730; C1732; J2001; J1644; J0131

== ENCOUNTER → 2022-04-10 | Outpatient (CLI) | payer BC ==
--- NOTE | 2022-04-10 18:09 | P.PN ---
Subjective DATE: 04/10/2022 FOLLOW UP VISIT. Patient with obstructive sleep apnea hypopnea syndrome return to sleep center for follow-up visit. Information from previous visit have been reviewed. I saw patient 1 year ago. Patient is using PAP equipment every night for the whole night, getting PAP supplies in time. The patient does not have significant problems with the mask, PAP unit and humidification. [place] sleepiness scale is 4. I checked information from PAP unit. BiPAP unit pressure maximal inspiratory pressure 17, minimal expiratory pressure 8, average pressure 13/9 cm H2O. Usage is 100 % for more then 4 hours, average 7.5 hours per night. Leak is for l/m, which is in acceptable range. Apnea Hypopnea Index is 0.8, which is normal. MEDICATIONS:1. Amlodipine 5 mg once a day 2. Atorvastatin 20 mg once a day 3. Eliquis 5 mg twice a day 4. Levothyroxine 100 g once a day 5. Lisinoprilhydrochlorothiazide 2012 0.5 mg 2 tablets once a day 6. Metformin 500 mg twice a day 7. Metoprolol 25 mg twice a day 8. Zyrtec 10 mg once a day 9. Enbril 50 mg injections once a week During physical exam: GENERAL: A pleasant patient without any distress. VITAL SIGNS: BP 140/82, HR 66, RR 18, weight 340.8, patient lost 10 pounds comparing to the previous visit, temperature 97.2, oxygen saturation at room air 98 % . HEENT: PERRLA, EOMI.low position of soft palate, Mallapati 4 . NECK: Supple. No JVD. LUNGS: Clear to percussion and to auscultation. Good air exchange. No wheezing or rhonchi. HEART: S1, S2 regular. ABDOMEN: Soft and nontender. Obese EXTREMITIES: No clubbing or cyanosis. CLOTH DOFFER: Awake, alert, and oriented x3. No focal deficit. Impressions: 1. Obstructive sleep apnea-hypopnea syndrome. Patient demonstrated great com pliance with treatment, benefiting from treatment. 2. Hypertension. 3. History of rheumatoid arthritis. 4. History of prostate CA status post prostatectomy. 5. Status post bilateral knee replacement. 6. Status post tonsillectomy. 7. Status post hernia repair. 8. Hypothyroidism. 9. Diabetes mellitus. 10. Seasonal ALLERGY. . Plan: 1. Continue using PAP equipment every night for the whole night. To change air filter immediately 2. To change air filter at least 1-2 times per month. 3. PAP unit should stay lower then position of the head. 4. Advised patient to remove all remaining water from humidifier canister daily and make it dry after each usage. Refill canister with fresh distilled water before each usage. 5. Sleep hygiene with regular time in bed for at least 8 hours. 6. Precautions related to driving. No driving if feel any sleepiness. 7. I will maintain prescription for PAP supplies including mask, tube, filters. 8. Follow up visit in 6 months or earlier if patient has any problems. 9. Watching weight. Thank you very much for allowing me to participate in the management of your patient. Gilberto Rice MD, PhD, FAASM. Diplomat of [place] [employer], Sleep Medicine Board by [place] [employer] Director Of Testing of [facility]
== END ==
LOC: SLEEP 16:12
PROVIDERS: ATTEND Internal Medicine
DX: G47.33 Obstructive sleep apnea (adult) (pediatric) (principal); I10 Essential (primary) hypertension; Z87.39 Personal history of other diseases of the musculoskeletal system and connective tissue; Z96.653 Presence of artificial knee joint, bilateral; Z90.09 Acquired absence of other part of head and neck; Z98.890 Other specified postprocedural states; E03.9 Hypothyroidism, unspecified; E11.9 Type 2 diabetes mellitus without complications; J30.9 Allergic rhinitis, unspecified; Z85.46 Personal history of malignant neoplasm of prostate; Z99.89 Dependence on other enabling machines and devices; Z90.79 Acquired absence of other genital organ(s); Z79.890 Hormone replacement therapy; Z79.899 Other long term (current) drug therapy; Z88.5 Allergy status to narcotic agent; Z88.0 Allergy status to penicillin

== ENCOUNTER → 2022-07-29 | Outpatient (CLI) | payer BC | END | disposition home or self-care (01) | LOC: LABWHC1 08:34 | PROVIDERS: ATTEND Urology | DX: C61 Malignant neoplasm of prostate (principal) | CPT/HCPCS: 36415; 84153 ==

== ENCOUNTER 2022-09-30 06:32 | Day surgery (SDC) | payer BC ==
[2022-09-30] MEDS ORDERED: INSULIN ASPART (NovoLOG) 100 UNIT/ML VIAL SQ ONE (07:25)
[2022-09-30 07:26] LABS: Glucose,Whole Blood 219 mg/dL (70-110)
[2022-09-30 07:27] VITALS: TEMP 97
[2022-09-30] MEDS ORDERED: LACTATED RINGERS 1,000 ML IV ONE (07:28)
[2022-09-30] MEDS ORDERED: PROPOFOL 10 MG/ML 20 ML VIAL IV ONE (07:31)
[2022-09-30] MEDS ORDERED: LIDOCAINE 2% INJ 20 MG/ML (2 ML VIAL) ONE (07:31)
--- NOTE | 2022-09-30 07:33 | P.GSHP ---
History of Present Illness H&P Date: 09/30/22 CHIEF COMPLAINT: Colon screen HISTORY OF PRESENT ILLNESS: The patient is a 56-year-old male who presents for colon screen. Lower endoscopy was offered for further evaluation and management. He is on blood thinners. BMI 42.2. PAST MEDICAL HISTORY: Please see list. PAST SURGICAL HISTORY: Please see list. MEDICATIONS: Please see list. ALLERGIES: Please see list. SOCIAL HISTORY: No illicit drug use FAMILY HISTORY: No reports of Crohn disease or ulcerative colitis. REVIEW OF ORGAN SYSTEMS: CONSTITUTIONAL: No reports of fevers or chills. PHYSICAL EXAM: VITAL SIGNS: Stable GENERAL: Well-developed pleasant in no acute distress. HEENT: No scleral icterus. Extraocular movements grossly intact. Moist buccal mucosa. NECK: Supple without lymphadenopathy. CHEST: Unlabored respirations. Equal bilateral excursions. CARDIOVASCULAR: Regular rate and rhythm. Distal 2+ pulses. ABDOMEN: Soft, nontender, nondistended. MUSCULOSKELETAL: No clubbing, cyanosis, or edema. ASSESSMENT: 1. Colon screen. PLAN: 1. Recommend proceeding with a lower endoscopy. He is elevated risk. Past Medical History Past Medical History: Atrial Flutter, Cancer, Diabetes Mellitus, Hypertension, Osteoarthritis (OA), Rheumatoid Arthritis (RA), Sleep Apnea/CPAP/BIPAP, Thyroid Disorder Additional Past Medical History / Comment(s): HX of Prostate CA; uses CPAP, see Dr. Chavez H & P History of Any Multi-Drug Resistant Organisms: None Reported Past Surgical History: Ablation, Appendectomy, Heart Catheterization, Hernia Repair, Joint Replacement, Prostate Surgery, Tonsillectomy Additional Past Surgical History / Comment(s): Eric. knee replacements; Eric. knee arthroscopies, Prostatectomy, Colonoscopies, cardioversion Past Anesthesia/Blood Transfusion Reactions: Postoperative Nausea & Vomiting (PONV) Additional Past Anesthesia/Blood Transfusion Reaction / Comment(s): one time episode of PONV years ago Smoking Status: Never smoker - Past Family History Father Family Medical History: Cancer Additional Family Medical History / Comment(s): colon cancer and prostate cancer Mother Family Medical History: Cancer Additional Family Medical History / Comment(s): liver cancer; breast cancer Brother(s) Family Medical History: Cancer Additional Family Medical History / Comment(s): colon, liver Medications and Allergies Home Medications Medication Instructions Recorded Confirmed Type Levothyroxine Sodium [Levoxyl] 100 mcg PO DAILY 03/21/17 09/30/22 History Lisinopril-Hctz 20-12.5 mg 2 tab PO W/BRKFST 03/21/17 09/30/22 History [Zestoretic 20-12.5] Atorvastatin [Lipitor] 20 mg PO W/SUPPER 10/11/19 09/30/22 History Etanercept [Enbrel] 50 mg SQ WE 10/11/19 09/30/22 History Semaglutide [Ozempic] 2 mg SQ MO 09/11/20 09/30/22 History Metoprolol Tartrate [Lopressor] 25 mg PO BID 30 Days #60 tab 09/13/20 09/30/22 Rx metFORMIN HCL [Glucophage] 500 mg PO BID #0 09/13/20 09/30/22 Rx Apixaban [Eliquis] 5 mg PO Q12HR 10/02/20 09/30/22 History Cetirizine HCl [Zyrtec] 10 mg PO DAILY PRN 10/02/20 09/30/22 History Multivitamins, Thera [Multivitamin 1 tab PO DAILY 10/02/20 09/30/22 History (formulary)] Psyllium Husk (with Sugar) 1 tbsp PO DIRECTED PRN 10/02/20 09/30/22 History [Metamucil Powder] Allergies Allergy/AdvReac Type Severity Reaction Status Date / Time Penicillins Allergy Rash/Hives Verified 09/30/22 07:11 hydrocodone [From [place]] AdvReac headache;di Verified 09/30/22 07:11 zziness Surgical - Exam Vital Signs Temp Pulse Resp BP Pulse Ox 97.0 F L 68 15 128/65 96 09/30/22 07:25 09/30/22 07:25 09/30/22 07:25 09/30/22 07:25 09/30/22 07:25 Results - Labs Abnormal Lab Results - Last 24 Hours (Table) 09/30/22 Range/Units 07:21 POC Glucose (mg/dL) 219 H (70-110) mg/dL
--- NOTE | 2022-09-30 08:03 | P.PCN ---
Date of Procedure: 09/30/22 Description of Procedure: PREOPERATIVE DIAGNOSIS: Personal history of colon polyps Chronic anticoagulant use Morbid obesity due to excess calories, BMI 42.2 POSTOPERATIVE DIAGNOSIS: Tubular adenoma hepatic flexure Tubular adenoma transverse colon Internal hemorrhoids, grade 2 OPERATION: Colonoscopy to the ileocecal valve and appendiceal orifice, cecum Colonoscopy with hot snare polypectomy Colonoscopy with cold forceps biopsy SURGEON: Hyacinth Elmore MD. ANESTHESIA: MAC. INDICATIONS: The patient is an 56-year-old male who presents personal history of colon polyps. Last colonoscopy 5 years. Benefits and risks were described and informed consent was obtained. DESCRIPTION OF PROCEDURE: The patient had undergone Sutab prep. The patient had been brought into the operating room and laid in the left lateral decubitus position. After adequate intravenous sedation, the rectum was examined with 2% lidocaine jelly. The prostate fossa was unremarkable. External hemorrhoids were encountered. The rectal tone was within normal limits. No lesions were palpated in the rectal vault. An Olympus colonoscope was advanced until the cecum, ileocecal valve and appendiceal orifice were clearly viewed. The prep was excellent. No sigmoid diverticulosis was encountered. Colonic polyps were found and removed. No evidence of focal colitis was found. Retroflexion of the scope demonstrated grade 2 internal hemorrhoids without active bleeding or inflammation. The colon was desufflated. The patient had tolerated the procedure well. Withdrawal time was over 6 minutes. FINDINGS: [place]chick preparation quality scale 1 (1-5) Internal hemorrhoids, grade 2 External hemorrhoids, grade 2 No arteriovenous malformations. No sigmoid diverticulosis Removal of 2 polyps: - Snare polypectomy hepatic flexure, 5 mm tubulovillous adenoma. - Cold forceps biopsy at proximal transverse colon, 4 mm adenoma. No focal colitis. RECOMMENDATIONS: Repeat colonoscopy 3 years, 2025 Plan - Discharge Summary Discharge Rx Participant: No New Discharge Prescriptions: Continue Lisinopril-Hctz 20-12.5 mg [Zestoretic 20-12.5] 2 tab PO W/BRKFST Levothyroxine Sodium [Levoxyl] 100 mcg PO DAILY Etanercept [Enbrel] 50 mg SQ WE Atorvastatin [Lipitor] 20 mg PO W/SUPPER Semaglutide [Ozempic] 2 mg SQ MO Metoprolol Tartrate [Lopressor] 25 mg PO BID 30 Days #60 tab metFORMIN HCL [Glucophage] 500 mg PO BID #0 Cetirizine HCl [Zyrtec] 10 mg PO DAILY PRN PRN Reason: Allergy Symptoms Psyllium Husk (with Sugar) [Metamucil Powder] 1 tbsp PO DIRECTED PRN PRN Reason: Constipation Multivitamins, Thera [Multivitamin (formulary)] 1 tab PO DAILY Apixaban [Eliquis] 5 mg PO Q12HR Discharge Medication List Levothyroxine Sodium [Levoxyl] 100 mcg PO DAILY 03/21/17 [History] Lisinopril-Hctz 20-12.5 mg [Zestoretic 20-12.5] 2 tab PO W/BRKFST 03/21/17 [History] Atorvastatin [Lipitor] 20 mg PO W/SUPPER 10/11/19 [History] Etanercept [Enbrel] 50 mg SQ WE 10/11/19 [History] Semaglutide [Ozempic] 2 mg SQ MO 09/11/20 [History] Metoprolol Tartrate [Lopressor] 25 mg PO BID 30 Days #60 tab 09/13/20 [Rx] metFORMIN HCL [Glucophage] 500 mg PO BID #0 09/13/20 [Rx] Apixaban [Eliquis] 5 mg PO Q12HR 10/02/20 [History] Cetirizine HCl [Zyrtec] 10 mg PO DAILY PRN 10/02/20 [History] Multivitamins, Thera [Multivitamin (formulary)] 1 tab PO DAILY 10/02/20 [History] Psyllium Husk (with Sugar) [Metamucil Powder] 1 tbsp PO DIRECTED PRN 10/02/20 [History] Follow up Appointment(s)/Referral(s): Hyacinth Elmore MD [STAFF PHYSICIAN] - As Needed Patient Instructions/Handouts: Colorectal Polyps (GEN) Activity/Diet/Wound Care/Special Instructions: START BLOOD THINNERS 10/03/22 TO PREVENT BLEEDING Repeat colonoscopy 2025 Discharge Disposition: HOME SELF-CARE
[2022-09-30 08:06] VITALS: RESP 16
[2022-09-30] MEDS ORDERED: LIDOCAINE 1% (10MG/ML) FOR IV START INTRADERMA PRN (08:10)
[2022-09-30] MEDS ORDERED: LACTATED RINGERS 1,000 ML IV SCH (08:10)
[2022-09-30 08:12] LABS: Glucose,Whole Blood 216 mg/dL (70-110)
[2022-09-30 08:21] VITALS: BP 118/74; PULSE 64
== END 2022-09-30 08:38 | disposition home or self-care (01) ==
LOC: ORWHC2ENDO 06:32
PROVIDERS: ATTEND Surgery Plastic and Reconstructive Surgery
DX: Z12.11 Encounter for screening for malignant neoplasm of colon (principal); D12.3 Benign neoplasm of transverse colon; K64.4 Residual hemorrhoidal skin tags; K64.1 Second degree hemorrhoids; E66.01 Morbid (severe) obesity due to excess calories; Z68.41 Body mass index [BMI] 40.0-44.9, adult; Z79.01 Long term (current) use of anticoagulants; I48.92 Unspecified atrial flutter; E11.9 Type 2 diabetes mellitus without complications; I10 Essential (primary) hypertension; G47.33 Obstructive sleep apnea (adult) (pediatric); Z99.89 Dependence on other enabling machines and devices; E07.9 Disorder of thyroid, unspecified; M06.9 Rheumatoid arthritis, unspecified; Z85.46 Personal history of malignant neoplasm of prostate; Z90.49 Acquired absence of other specified parts of digestive tract; Z96.653 Presence of artificial knee joint, bilateral; Z98.890 Other specified postprocedural states; Z90.79 Acquired absence of other genital organ(s); Z80.0 Family history of malignant neoplasm of digestive organs; Z80.42 Family history of malignant neoplasm of prostate; Z80.3 Family history of malignant neoplasm of breast; Z79.890 Hormone replacement therapy; Z79.899 Other long term (current) drug therapy; Z79.52 Long term (current) use of systemic steroids; Z79.02 Long term (current) use of antithrombotics/antiplatelets; Z79.84 Long term (current) use of oral hypoglycemic drugs; Z79.891 Long term (current) use of opiate analgesic; Z88.0 Allergy status to penicillin; Z88.5 Allergy status to narcotic agent
CPT/HCPCS: 88305; 45380; 45385; J2704; J2001

== ENCOUNTER 2023-03-12 20:52 | Emergency (ER) | payer BC ==
[2023-03-12 23:11] VITALS: RESP 18
--- NOTE | 2023-03-12 23:24 | ED ---
ENT HPI - General Source: patient Mode of arrival: ambulatory Limitations: no limitations <Naun Akhtar - Last Filed: 03/12/23 23:25> <Keira Merrill - Last Filed: 03/13/23 02:40> - General Chief complaint: ENT Stated complaint: Nose Bleed - History of Present Illness Initial comments: 57-year-old male with past medical history significant for a flutter on Eliquis presents to ED with a chief complaint of epistaxis. Patient states over the past 3 days has had nosebleeds. No trauma. States today has had difficulty controlling nosebleed and is concerned about the amount of blood that he's lost prompting presentation to the ED. Notes history of prior cauterization due to nosebleeds approximately 45 years ago no recent cauterizations or procedures. Patient's placed tampon patient's right nostril to control bleeding. (Naun Akhtar) 57-year-old male presenting with chief complaint of nosebleed. Bleeding started at around 2030 this evening. Patient is on eliquis. Tampon was placed in the nose by his . Recent injury or trauma. Patient with history of nosebleeds requiring cauterization many years ago. No lightheadedness or dizziness. No nausea or vomiting. No headache. (Keira Merrill) - Related Data Home Medications Medication Instructions Recorded Confirmed Levothyroxine Sodium [Levoxyl] 100 mcg PO DAILY 03/21/17 09/30/22 Lisinopril-Hctz 20-12.5 mg 2 tab PO W/BRKFST 03/21/17 09/30/22 [Zestoretic 20-12.5] Atorvastatin [Lipitor] 20 mg PO W/SUPPER 10/11/19 09/30/22 Etanercept [Enbrel] 50 mg SQ WE 10/11/19 09/30/22 Semaglutide [Ozempic] 2 mg SQ MO 09/11/20 09/30/22 Apixaban [Eliquis] 5 mg PO Q12HR 10/02/20 09/30/22 Cetirizine HCl [Zyrtec] 10 mg PO DAILY PRN 10/02/20 09/30/22 Multivitamins, Thera [Multivitamin 1 tab PO DAILY 10/02/20 09/30/22 (formulary)] Psyllium Husk (with Sugar) 1 tbsp PO DIRECTED PRN 10/02/20 09/30/22 [Metamucil Powder] Previous Rx's Medication Instructions Recorded Metoprolol Tartrate [Lopressor] 25 mg PO BID 30 Days #60 tab 09/13/20 metFORMIN HCL [Glucophage] 500 mg PO BID #0 09/13/20 Allergies Allergy/AdvReac Type Severity Reaction Status Date / Time Penicillins Allergy Rash/Hives Verified 03/12/23 23:11 hydrocodone [From [place]] AdvReac headache;di Verified 03/12/23 23:11 zziness Review of Systems ROS Other: All systems not noted in ROS Statement are negative. <Naun Akhtar - Last Filed: 03/12/23 23:25> ROS Other: All systems not noted in ROS Statement are negative. <Keira Merrill - Last Filed: 03/13/23 02:40> ROS Statement: Those systems with pertinent positive or pertinent negative responses have been documented in the HPI. Past Medical History Past Medical History: Atrial Flutter, Cancer, Diabetes Mellitus, Hypertension, Osteoarthritis (OA), Rheumatoid Arthritis (RA), Sleep Apnea/CPAP/BIPAP, Thyroid Disorder Additional Past Medical History / Comment(s): HX of Prostate CA; uses CPAP, see Dr. Chavez H & P History of Any Multi-Drug Resistant Organisms: None Reported Past Surgical History: Ablation, Appendectomy, Heart Catheterization, Hernia Repair, Joint Replacement, Prostate Surgery, Tonsillectomy Additional Past Surgical History / Comment(s): Eric. knee replacements; Eric. knee arthroscopies, Prostatectomy, Colonoscopies, cardioversion Past Anesthesia/Blood Transfusion Reactions: Postoperative Nausea & Vomiting (PONV) Additional Past Anesthesia/Blood Transfusion Reaction / Comment(s): one time episode of PONV years ago Past Psychological History: No Psychological Hx Reported Smoking Status: Never smoker Past Alcohol Use History: Rare Past Drug Use History: None Reported - Past Family History Father Family Medical History: Cancer Additional Family Medical History / Comment(s): colon cancer and prostate cancer Mother Family Medical History: Cancer Additional Family Medical History / Comment(s): liver cancer; breast cancer Brother(s) Family Medical History: Cancer Additional Family Medical History / Comment(s): colon, liver <Naun Akhtar - Last Filed: 03/12/23 23:25> General Exam Limitations: no limitations <Naun Akhtar - Last Filed: 03/12/23 23:25> Limitations: no limitations General appearance: alert, in no apparent distress Head exam: Present: atraumatic, normocephalic, normal inspection Eye exam: Present: normal appearance, EOMI. Absent: scleral icterus, periorbital swelling ENT exam: Present: other (Bleeding from the right nostril) Neck exam: Present: normal inspection, full ROM Neurological exam: Present: alert, oriented X3, CN II-XII intact Psychiatric exam: Present: normal affect, normal mood Skin exam: Present: warm, dry, intact, normal color. Absent: rash <Keira Merrill - Last Filed: 03/13/23 02:40> Course Vital Signs 03/12/23 03/13/23 23:08 02:04 Temperature 98.1 F 97.6 F Pulse Rate 60 58 L Respiratory 18 18 Rate Blood Pressure 128/79 120/75 O2 Sat by Pulse 98 96 Oximetry Medical Decision Making <Keira Merrill - Last Filed: 03/13/23 02:40> - Medical Decision Making Was pt. sent in by a medical professional or institution (PATRICIO Gary, BENZOL OPERATOR, urgent care, hospital, or usp...) When possible be specific @ -No Did you speak to anyone other than the patient for history (EMS, parent, family, police, friend...)? What history was obtained from this source @ -No Did you review nursing and triage notes (agree or disagree)? Why? @ -I reviewed and agree with nursing and triage notes Were old charts reviewed (outside hosp., previous admission, EMS record, old EKG, old radiological studies, urgent care reports/EKG's, usp records)? Report findings @ -No old charts were reviewed Differential Diagnosis (chest pain, altered mental status, abdominal pain women, abdominal pain men, vaginal bleeding, weakness, fever, dyspnea, syncope, headache, dizziness, GI bleed, back pain, seizure, CVA, palpatations, mental health, musculoskeletal)? @ -Differential includes trauma, vascular abnormality, hypertension, this is not an all inclusive list EKG interpreted by me (3pts min.). @ -As above X-rays interpreted by me (1pt min.). @ -None done CT interpreted by me (1pt min.). @ -None done U/S interpreted by me (1pt. min.). @ -None done What testing was considered but not performed or refused? (CT, X-rays, U/S, labs)? Why? @ -None What meds were considered but not given or refused? Why? @ -None Did you discuss the management of the patient with other professionals (professionals i.e. , PA, BENZOL OPERATOR, lab, RT, psych nurse, protective services social worker, coin machine supervisor, teacher, police or patrol park officer, high risk case manager)? Give summary @ -No Was smoking cessation discussed for >3mins.? @ -No Was critical care preformed (if so, how long)? @ -No Were there social determinants of health that impacted care today? How? (Homelessness, low income, unemployed, alcoholism, drug addiction, transportation, low edu. Level, literacy, decrease access to med. care, care home, rehab)? @ -No Was there de-escalation of care discussed even if they declined (Discuss DNR or withdrawal of care, Hospice)? DNR status @ -No What co-morbidities impacted this encounter? (DM, HTN, Smoking, COPD, CAD, Cancer, CVA, ARF, Chemo, Hep., AIDS, mental health diagnosis, sleep apnea, morbid obesity)? @ -None Was patient admitted / discharged? Hospital course, mention meds given and route, prescriptions, significant lab abnormalities, going to OR and other pertinent info. @ -57-year-old male on a liquid as presenting with chief complaint of nosebleed that started this evening. Patient arrived with a tampon inside the nostril to help stop the bleeding. When I remove the tampon the patient was still bleeding. Afrin nasal spray nasal clamp refused as well as cauterization. Patient was observed and had no recurrence of bleeding. He is provided with a nasal clip and Afrin for home in the event of rebleeding. Follow-up with PCP. Report back to ER with any new or worsening symptoms. Discussed return parameters and answered all questions. Patient conveyed verbal understanding and agreed to the plan. I discussed this case in detail with my attending Dr. Griffith Undiagnosed new problem with uncertain prognosis? @ -No Drug Therapy requiring intensive monitoring for toxicity (Heparin, Nitro, Insulin, Cardizem)? @ -No Were any procedures done? @ -No Diagnosis/symptom? @ -Epistaxis Acute, or Chronic, or Acute on Chronic? @ -Acute Uncomplicated (without systemic symptoms) or Complicated (systemic symptoms)? @ -Uncomplicated Side effects of treatment? @ -No Exacerbation, Progression, or Severe Exacerbation? @ -No Poses a threat to life or bodily function? How? (Chest pain, [place], [place], pneumonia, PE, COPD, DKA, ARF, appy, cholecystitis, CVA, Diverticulitis, Homicidal, Suicidal, threat to staff... and all critical care pts) @ -No (Keira Merrill) Disposition <Naun Akhtar - Last Filed: 03/12/23 23:25> Is patient prescribed a controlled substance at d/c from ED?: No Time of Disposition: 01:43 <Keira Merrill - Last Filed: 03/13/23 02:40> Clinical Impression: Epistaxis Disposition: HOME SELF-CARE Condition: Good Instructions (If sedation given, give patient instructions): Nosebleed (ED) Additional Instructions: Follow-up with PCP. Report back to ER with any new or worsening symptoms. Do not blow your nose. Use nasal clamp and Afrin spray as needed for nosebleeds. Referrals: Brandon Fernandez MD [Primary Care Provider] - 1-2 days
[2023-03-13] MEDS ORDERED: SILVER NITRATE APPLICATOR 1 EACH STICK..EA. TOPICAL STA (00:40)
[2023-03-13] MEDS ORDERED: OXYMETAZOLINE 0.05% NASL SPRAY 1 SPRAY BOTTLE NASAL STA (00:40)
[2023-03-13 02:05] VITALS: BP 120/75; PULSE 58; TEMP 97.6
== END 2023-03-13 02:05 | disposition home or self-care (01) ==
LOC: EC 20:52
DX: R04.0 Epistaxis (principal); E11.9 Type 2 diabetes mellitus without complications; I10 Essential (primary) hypertension; I48.92 Unspecified atrial flutter; E07.9 Disorder of thyroid, unspecified; Z79.01 Long term (current) use of anticoagulants; Z79.84 Long term (current) use of oral hypoglycemic drugs; Z79.899 Other long term (current) drug therapy; Z79.890 Hormone replacement therapy; Z88.0 Allergy status to penicillin; Z88.5 Allergy status to narcotic agent
CPT/HCPCS: 30901; 99283

== ENCOUNTER → 2023-05-26 | Outpatient (CLI) | payer BC ==
--- NOTE | 2023-05-26 15:38 | P.PN ---
Subjective DATE: 05/26/2023 FOLLOW UP VISIT. Patient with obstructive sleep apnea hypopnea syndrome return to sleep center for follow-up visit. Information from previous visit have been reviewed. Patient is using PAP equipment every night for the whole night, getting PAP supplies in time. The patient does not have significant problems with the mask, PAP unit and humidification. [place] sleepiness scale is 4, which is normal. I checked information from PAP unit. PAP unit pressure maximal inspiratory pressure 17, minimal expiratory pressure is 8, pressure-support is 4 cm H2O. Usage is 100 % for more then 4 hours, average 7.3 hours per night. Leak is 17 l/m, which is in acceptable range. Apnea Hypopnea Index is 0.9, which is normal. MEDICATIONS:1. Eliquis 5 mg twice a day 2. Levothyroxine 100 g once a day 3. Lisinopril/hydrochlorothiazide 2012.5 mg twice a day 4. Metformin 500 mg twice a day 5. Metoprolol 25 mg twice a day 6. Amlodipine 5 mg once a day 7. Atorvastatin 20 mg once a day 8. Ozempic 2 mg once a week During physical exam: GENERAL: A pleasant patient without any distress. VITAL SIGNS: BP 147/80, HR 66, RR 16, weight 330.8, temperature 98.0, oxygen saturation at room air 97 % . HEENT: PERRLA, EOMI.low position of soft palate, Mallapati 4 . NECK: Supple. No JVD. LUNGS: Clear to percussion and to auscultation. Good air exchange. No wheezing or rhonchi. HEART: S1, S2 regular. ABDOMEN: Soft and nontender. Obese EXTREMITIES: No clubbing or cyanosis. GENERAL EDUCATION INSTRUCTOR: Awake, alert, and oriented x3. No focal deficit. Impressions: 1. Obstructive sleep apnea-hypopnea syndrome. Patient demonstrated great compliance with treatment, benefiting from treatment. 2. Obesity, patient increased his weight on 13 pounds comparing to the previous visit. 3. Hypertension. 4. Diabetes mellitus. 5. History of prostate cancer, status post prostatectomy. 6. Status post bilateral knee replacement. 7. Status post tonsillectomy. 8. Hypothyroidism. 9. History of rheumatoid arthritis. 10. Seasonal ALLERGY. Plan: 1. Continue using PAP equipment every night for the whole night. 2. To change air filter at least 1-2 times per month. 3. PAP unit should stay lower then position of the head. 4. Advised patient to remove all remaining water from humidifier canister daily and make it dry after each usage. Refill canister with fresh distilled water before each usage. 5. Sleep hygiene with regular time in bed for at least 8 hours. 6. Precautions related to driving. No driving if feel any sleepiness. 7. I will maintain prescription for PAP supplies including mask, tube, filters. 8. Follow up visit in 6 months or earlier if patient has any problems. 9. Watching and losing weight. Thank you very much for allowing me to participate in the management of your patient. Gilberto Rice MD, PhD, FAASM. Diplomat of [place] [employer], Sleep Medicine Board by [place] [employer] [facility] [place]
== END ==
LOC: 3 N SLEEP 15:02
PROVIDERS: ATTEND Internal Medicine
DX: G47.33 Obstructive sleep apnea (adult) (pediatric) (principal); E66.9 Obesity, unspecified; I10 Essential (primary) hypertension; E11.9 Type 2 diabetes mellitus without complications; E03.9 Hypothyroidism, unspecified; J30.2 Other seasonal allergic rhinitis; M06.9 Rheumatoid arthritis, unspecified; Z79.84 Long term (current) use of oral hypoglycemic drugs; Z79.899 Other long term (current) drug therapy; Z90.79 Acquired absence of other genital organ(s); Z79.890 Hormone replacement therapy; Z85.46 Personal history of malignant neoplasm of prostate; Z96.653 Presence of artificial knee joint, bilateral; Z98.890 Other specified postprocedural states; Z90.89 Acquired absence of other organs; Z99.89 Dependence on other enabling machines and devices; Z88.0 Allergy status to penicillin; Z88.5 Allergy status to narcotic agent
CPT/HCPCS: 99212

== ENCOUNTER → 2023-08-28 | Outpatient (CLI) | payer BC ==
[2023-08-28 15:41] LABS: Basophils # (A) 0.06 X 10*3/uL (0.00-0.10); Basophils % (A) 0.7 %; Eosinophils # (A) 0.32 X 10*3/uL (0.04-0.35); Eosinophils % (A) 3.6 %; HCT 46.4 % (39.6-50.0); HGB 16.1 g/dL (13.0-17.0); Lymphocytes % (A) 23.3 %; MCH 31.2 pg (27.0-32.0); MCHC 34.7 g/dL (32.0-37.0); MCV 89.9 FL (80.0-97.0); Mean Platelet Volume 11.7 FL (9.5-12.2); Monocytes # (A) 0.75 X 10*3/uL (0.20-1.00); Monocytes % (A) 8.3 %; NRBC Per 100 WBC 0 X 10*3/uL (0.00-0.01); Neutrophils # (A) 5.71 X 10*3/uL (1.80-7.70); Neutrophils % (A) 63.3 %; Platelet Count 213 X 10*3/uL (140-440); RBC 5.16 X 10*6/uL (4.40-5.60); RDW 13.7 % (11.5-14.5); WBC 9.01 X 10*3/uL (4.50-10.00)
[2023-08-28 15:54] LABS: BUN/Creat Ratio 16.14 Ratio (12.00-20.00); Blood Urea Nitrogen 11.3 mg/dL (9.0-27.0); Chol/HDL Ratio 3.16 Ratio; Glucose 201 mg/dL (70-110); LDL Cholesterol,Calculated 44.2 mg/dL (0.0-131.0)
[2023-08-28 15:55] LABS: ALT 50 U/L (10-49); AST 30 U/L (14-35); Albumin 4.2 g/dL (3.8-4.9); Albumin/Globulin Ratio 1.56 Ratio (1.60-3.17); Alkaline Phosphatase 50 U/L (41-126); Calcium 9.4 mg/dL (8.7-10.3); Carbon Dioxide 25.6 mmol/L (21.6-31.8); Chloride 103 mmol/L (96-109); Globulin 2.7 g/dL (1.6-3.3); Potassium 4.4 mmol/L (3.5-5.5); Sodium 141 mmol/L (135-145); T4, Free (Free Thyroxine) 1.34 ng/dL (0.80-1.80); Total Bilirubin 0.8 mg/dL (0.3-1.2); Total Protein 6.9 g/dL (6.2-8.2)
== END | disposition home or self-care (01) ==
LOC: LABWHC1 07:46
PROVIDERS: ATTEND Family Medicine
DX: E03.9 Hypothyroidism, unspecified (principal); E78.5 Hyperlipidemia, unspecified; E11.65 Type 2 diabetes mellitus with hyperglycemia
CPT/HCPCS: 36415; 80053; 80061; 83036; 84439; 84443; 85025

== ENCOUNTER → 2023-12-03 | Outpatient (CLI) | payer BC ==
[2023-12-03 15:52] VITALS: BP 122/81; PULSE 72; RESP 16; TEMP 98.1
--- NOTE | 2023-12-03 18:04 | P.PN ---
Subjective DATE: 12/03/2023 FOLLOW UP VISIT. Patient with obstructive sleep apnea hypopnea syndrome return to sleep center for follow-up visit. Information from previous visit have been reviewed. Patient is using PAP equipment every night for the whole night, getting PAP supplies in time. The patient does not have significant problems with the mask, PAP unit and humidification. [place] sleepiness scale is 3, which is normal. I checked information from PAP unit. PAP unit pressure maximal inspiratory pressure 17, minimal expiratory pressure 8, pressure support 4, average pressure 13.3/9.3 cm H2O. Usage is 100% for more then 4 hours, average 7.8 hours per night. Leak is 19 l/m, which is in acceptable range. Apnea Hypopnea Index is 1.5, which is normal. MEDICATIONS: Have been reviewed, see list of medications in hospital chart. During physical exam: GENERAL: A pleasant patient without any distress. VITAL SIGNS: Please see below. HEENT: PERRLA, EOMI.low position of soft palate, Mallapati 4 . NECK: Supple. No JVD. LUNGS: Clear to percussion and to auscultation. Good air exchange. No wheezing or rhonchi. HEART: S1, S2 regular. ABDOMEN: Soft and nontender. Obese EXTREMITIES: No clubbing or cyanosis. ELIGIBILITY ANALYST: Awake, alert, and oriented x3. No focal deficit. Impressions: 1. Obstructive sleep apnea-hypopnea syndrome. Patient demonstrated great compliance with treatment, benefiting from treatment. 2. Obesity, BMI 43.2. 3. Hypertension. 4. Diabetes mellitus. 5. History of prostate cancer, status post prostatectomy. 6. Status post bilateral knee replacement. 7. Status post tonsillectomy. 8. Status post hernia repair. 9. Hypothyroidism. 10. Seasonal allergy. 11. History of rheumatoid arthritis. Plan: 1. Continue using PAP equipment every night for the whole night. 2. To change air filter at least 1-2 times per month. 3. PAP unit should stay lower then position of the head. 4. Advised patient to remove all remaining water from humidifier canister daily and make it dry after each usage. Refill canister with fresh distilled water before each usage. 5. Sleep hygiene with regular time in bed for at least 8 hours. 6. Precautions related to driving. No driving if feel any sleepiness. 7. I will maintain prescription for PAP supplies including mask, tube, filters. 8. Follow up visit in 6 months or earlier if patient has any problems. 9. Watching and losing weight. Thank you very much for allowing me to participate in the management of your patient. Gilberto Rice MD, PhD, FAASM. Diplomat of [place] [employer], Sleep Medicine Board by [employer] Employment Coach of [facility] [place] Objective - Vital Signs Vital signs: Vital Signs Temp 98.1 F 12/03/23 15:45 Pulse 72 12/03/23 15:45 Resp 16 12/03/23 15:45 BP 122/81 12/03/23 15:45 Pulse Ox 96 12/03/23 15:45 FiO2 Intake & Output 12/02/23 12/03/23 12/03/23 18:59 06:59 18:59 Weight 168.283 kg
== END ==
LOC: 3 N SLEEP 15:16
PROVIDERS: ATTEND Internal Medicine
DX: G47.33 Obstructive sleep apnea (adult) (pediatric) (principal); E66.9 Obesity, unspecified; I10 Essential (primary) hypertension; E11.9 Type 2 diabetes mellitus without complications; E03.9 Hypothyroidism, unspecified; M06.9 Rheumatoid arthritis, unspecified; Z68.41 Body mass index [BMI] 40.0-44.9, adult; Z90.79 Acquired absence of other genital organ(s); Z85.46 Personal history of malignant neoplasm of prostate; Z98.890 Other specified postprocedural states; Z96.653 Presence of artificial knee joint, bilateral; Z99.89 Dependence on other enabling machines and devices; Z88.0 Allergy status to penicillin; Z88.5 Allergy status to narcotic agent; Z79.84 Long term (current) use of oral hypoglycemic drugs; Z79.899 Other long term (current) drug therapy; Z79.890 Hormone replacement therapy; Z79.85 Long-term (current) use of injectable non-insulin antidiabetic drugs
CPT/HCPCS: 99212

== ENCOUNTER → 2023-12-12 | Outpatient (CLI) | payer BC ==
[2023-12-12 15:46] LABS: Basophils # (A) 0.06 X 10*3/uL (0.00-0.10); Basophils % (A) 0.7 %; Eosinophils % (A) 3.6 %; HCT 47.4 % (39.6-50.0); HGB 16.8 g/dL (13.0-17.0); Lymphocytes # (A) 1.95 X 10*3/uL (0.90-5.00); Lymphocytes % (A) 23.6 %; MCH 30.7 pg (27.0-32.0); MCHC 35.4 g/dL (32.0-37.0); MCV 86.7 FL (80.0-97.0); Mean Platelet Volume 12.3 FL (9.5-12.2); Monocytes # (A) 0.57 X 10*3/uL (0.20-1.00); Monocytes % (A) 6.9 %; NRBC Per 100 WBC 0 X 10*3/uL (0.00-0.01); Neutrophils # (A) 5.36 X 10*3/uL (1.80-7.70); Neutrophils % (A) 64.8 %; Platelet Count 211 X 10*3/uL (140-440); RBC 5.47 X 10*6/uL (4.40-5.60); RDW 13.2 % (11.5-14.5); WBC 8.27 X 10*3/uL (4.50-10.00)
[2023-12-12 16:05] LABS: ALT 34 U/L (10-49); AST 25 U/L (14-35); Albumin 4.3 g/dL (3.8-4.9); Albumin/Globulin Ratio 1.54 Ratio (1.60-3.17); Alkaline Phosphatase 52 U/L (41-126); BUN/Creat Ratio 21.14 Ratio (12.00-20.00); Blood Urea Nitrogen 14.8 mg/dL (9.0-27.0); Calcium 9.7 mg/dL (8.7-10.3); Carbon Dioxide 24.1 mmol/L (21.6-31.8); Chloride 104 mmol/L (96-109); Chol/HDL Ratio 3.58 Ratio; Globulin 2.8 g/dL (1.6-3.3); Glucose 346 mg/dL (70-110); LDL Cholesterol,Calculated 45.6 mg/dL (0.0-131.0); Potassium 3.9 mmol/L (3.5-5.5); Sodium 140 mmol/L (135-145); Total Protein 7.1 g/dL (6.2-8.2)
== END | disposition home or self-care (01) ==
LOC: LABWHC1 08:11
PROVIDERS: ATTEND Internal Medicine Interventional Cardiology
DX: E78.2 Mixed hyperlipidemia (principal)
CPT/HCPCS: 36415; 80053; 80061; 83036; 84443; 85025

== ENCOUNTER → 2024-02-13 | Outpatient (CLI) | payer BC | END | disposition home or self-care (01) | LOC: LABWHC1 13:58 | PROVIDERS: ATTEND Urology | DX: C61 Malignant neoplasm of prostate (principal) | CPT/HCPCS: 36415; 84153 ==

== ENCOUNTER → 2024-03-09 | Outpatient (CLI) | payer BC ==
[2024-03-09 11:40] LABS: Basophils # (A) 0.06 X 10*3/uL (0.00-0.10); Basophils % (A) 0.7 %; Eosinophils # (A) 0.41 X 10*3/uL (0.04-0.35); Eosinophils % (A) 5.1 %; HCT 47.1 % (39.6-50.0); HGB 16.2 g/dL (13.0-17.0); Lymphocytes % (A) 23.6 %; MCH 31.5 pg (27.0-32.0); MCHC 34.4 g/dL (32.0-37.0); MCV 91.6 FL (80.0-97.0); Mean Platelet Volume 11.6 FL (9.5-12.2); Monocytes # (A) 0.63 X 10*3/uL (0.20-1.00); Monocytes % (A) 7.8 %; NRBC Per 100 WBC 0 X 10*3/uL (0.00-0.01); Neutrophils # (A) 5.01 X 10*3/uL (1.80-7.70); Neutrophils % (A) 62.4 %; Platelet Count 202 X 10*3/uL (140-440); RBC 5.14 X 10*6/uL (4.40-5.60); RDW 13.6 % (11.5-14.5); WBC 8.04 X 10*3/uL (4.50-10.00)
[2024-03-09 11:50] LABS: ALT 32 U/L (10-49); AST 29 U/L (14-35); Albumin 4.3 g/dL (3.8-4.9); Albumin/Globulin Ratio 1.65 Ratio (1.60-3.17); Alkaline Phosphatase 47 U/L (41-126); BUN/Creat Ratio 20.25 Ratio (12.00-20.00); Blood Urea Nitrogen 16.2 mg/dL (9.0-27.0); Calcium 9.7 mg/dL (8.7-10.3); Carbon Dioxide 27.7 mmol/L (21.6-31.8); Chloride 105 mmol/L (96-109); Globulin 2.6 g/dL (1.6-3.3); Glucose 202 mg/dL (70-110); Potassium 4.6 mmol/L (3.5-5.5); Sodium 144 mmol/L (135-145); Total Bilirubin 0.7 mg/dL (0.3-1.2); Total Protein 6.9 g/dL (6.2-8.2)
== END | disposition home or self-care (01) ==
LOC: LABWHC1 06:55
PROVIDERS: ATTEND Family Medicine
DX: E11.65 Type 2 diabetes mellitus with hyperglycemia (principal)
CPT/HCPCS: 36415; 80053; 83036; 85025

== ENCOUNTER → 2024-06-24 | Outpatient (CLI) | payer BC ==
[2024-06-24 16:11] VITALS: BP 133/75; PULSE 65; RESP 18; TEMP 97.6
--- NOTE | 2024-06-24 16:20 | P.PROGSL ---
Subjective DATE: 06/24/2024 FOLLOW UP VISIT. Patient with obstructive sleep apnea hypopnea syndrome return to sleep center for follow-up visit. Information from previous visit have been reviewed. Patient is using PAP equipment every night for the whole night, getting PAP supplies in time. The patient does not have significant problems with the mask, PAP unit and humidification. [place] sleepiness scale is 3, which is perfect. I checked information from PAP unit. PAP unit pressure maximal inspiratory pressure 18, minimal expiratory pressure 8, pressure support 4 cm H2O. Usage is 100% for more then 4 hours, average 7.7 hours per night. Leak is 18 l/m, which is in acceptable range. Apnea Hypopnea Index is 1.1, which is normal. MEDICATIONS have been reviewed, please see below. During physical exam: GENERAL: A pleasant patient without any distress. VITAL SIGNS: Please see below, weight is 317.4 lbs. HEENT: PERRLA, EOMI.low position of soft palate, Mallapati 4 . NECK: Supple. No JVD. LUNGS: Clear to percussion and to auscultation. Good air exchange. No wheezing or rhonchi. HEART: S1, S2 regular. ABDOMEN: Soft and nontender. Obese EXTREMITIES: No clubbing or cyanosis. MANAGER RISK: Awake, alert, and oriented x3. No focal deficit. Impressions: 1. Obstructive sleep apnea-hypopnea syndrome. Patient demonstrated great compliance with treatment, benefiting from treatment. 2. Obesity, BMI 43.5. 3. Diabetes mellitus, according to patient hemoglobin A1c 7.1. 4. Status post prostatectomy for prostate cancer. 5. Status post bilateral knee replacement. 6. Status post tonsillectomy. 7. Hypothyroidism. 8. Seasonal allergy. 9. History of rheumatoid arthritis. 10. Status post hernia repair. Plan: 1. Continue using PAP equipment every night for the whole night. 2. Sleep hygiene with regular time in bed for at least 7.5-8 hours 3. PAP unit should stay lower then position of the head. 4. Advised patient to remove all remaining water from humidifier canister daily and make it dry after each usage. Refill canister with fresh distilled water before each usage. 5. Watching and losing weight. 6. Precautions related to driving. No driving if feel any sleepiness. 7. I will maintain prescription for PAP supplies including mask, tube, filters. 8. Follow up visit in 8 months or earlier if patient has any problems. Thank you very much for allowing me to participate in the management of your patient. Gilberto Rice MD, PhD, FAASM. Diplomat of [place] [employer], Sleep Medicine Board by [place] Curtain Supervisor of [facility] [place] cc: Brandon Fernandez MD Objective - Vital Signs Vital Signs: Vital Signs Temp 97.6 F 06/24/24 16:09 Pulse 65 06/24/24 16:09 Resp 18 06/24/24 16:09 BP 133/75 06/24/24 16:09 Pulse Ox 95 06/24/24 16:09 FiO2 Intake & Output 06/23/24 06/24/24 06/24/24 18:59 06:59 18:59 Weight 143.902 kg Home Medications: Home Medications Medication Instructions Recorded Confirmed Type Levothyroxine Sodium [Levoxyl] 100 mcg PO DAILY 03/21/17 06/24/24 History Lisinopril-Hctz 20-12.5 mg 2 tab PO W/BRKFST 03/21/17 06/24/24 History [Zestoretic 20-12.5] Atorvastatin [Lipitor] 20 mg PO W/SUPPER 10/11/19 06/24/24 History Etanercept [Enbrel] 50 mg SQ WE 10/11/19 06/24/24 History Semaglutide [Ozempic] 2 mg SQ DIRECTED 09/11/20 06/24/24 History Metoprolol Tartrate [Lopressor] 25 mg PO BID 30 Days #60 tab 09/13/20 06/24/24 Rx metFORMIN HCL [Glucophage] 500 mg PO BID #0 09/13/20 06/24/24 Rx Apixaban [Eliquis] 5 mg PO Q12HR 10/02/20 06/24/24 History Cetirizine HCl [Zyrtec] 10 mg PO DAILY PRN 10/02/20 06/24/24 History Multivitamins, Thera [Multivitamin 1 tab PO DAILY 10/02/20 06/24/24 History (formulary)] Psyllium Husk (with Sugar) 1 tbsp PO DIRECTED PRN 10/02/20 12/03/23 History [Metamucil Powder] Ascorbic Acid [Vitamin C chew] 500 mg PO DAILY 06/24/24 06/24/24 History Empagliflozin [Jardiance] 25 mg PO DAILY 06/24/24 06/24/24 History Psyllium Husk (with Sugar) 0 gm PO DIRECTED 06/24/24 06/24/24 History [Metamucil Powder]
== END ==
LOC: 3 N SLEEP 15:28
PROVIDERS: ATTEND Internal Medicine
CPT/HCPCS: 99212

== ENCOUNTER → 2024-07-12 | Outpatient (CLI) | payer BC | END | disposition home or self-care (01) | LOC: LABWHC1 15:54 | PROVIDERS: ATTEND Urology | DX: C61 Malignant neoplasm of prostate (principal) | CPT/HCPCS: 36415; 84153 ==

== ENCOUNTER → 2025-01-04 | Outpatient (CLI) | payer BC | END | disposition home or self-care (01) | LOC: LABWHC1 14:10 | PROVIDERS: ATTEND Radiology Radiation Oncology | DX: C61 Malignant neoplasm of prostate (principal) | CPT/HCPCS: 36415; 84153 ==